=== PATIENT | male | born 1945 | race Caucasian/White ===

== ENCOUNTER 2021-12-26 10:11 | Emergency (ER) | payer OTHER ==
--- OUTSIDE RECORDS SUMMARY | 2021-12-26 10:14 | XMS REPORT | Continuity of Care Document ---
:1945 Author Organization [facility] t Address [address] [place] [address] Care Team Providers Name Role Phone CTR, ADMIN MED Primary Care Physician Unavailable BARBARA Attending Clinician Unavailable SOTA Attending Clinician Unavailable Dom CARDENAS, B Attending Clinician Unavailable OVILLE Attending Clinician Unavailable Doctor Unassigned, Name Attending Clinician Unavailable OVILLE Admitting Clinician Unavailable Payers Payer Name Policy Type Policy Number Effective Date Expiration Date S michaela [employer] [facility] [place] [facility] [id number] 2021 CLASSIC NO PREMIUM 00:00:00 HMO Problems Condition Condition Condition Status Onset Resolution Last Treating Co mments Source Name Details Category Date Date Treatment Clinician Date Acute Acute Disease Active Univers left-sided left-sided 5-15 it y of CHF CHF 00:00: [place] (congestiv (congestiv 00 Me dical e heart e heart Branch failure) failure) Persistent Persistent Disease Active U nivers atrial atrial 4-17 ity of fibrillati fibrill[place] 00 Medical Branch KHLOE (acute KHLOE (acute Disease Active U nivers kidney kidney 4-16 ity of injury) injury) 00:00: [place] 00 Medical Branch Microcytic Microcytic Disease Active U nivers anemia anemia 2-01 ity of 00:00: [place] Medical Branch COPD COPD Disease Active Univers (chronic (chronic 1-29 [place]y of obstructiv obstructiv [place] 00 Medical pulmonary pulmonary Bran ch disease) disease) Constipati Constipati Disease Active U nivers on on 08-25 ity of 00:00: [place] 00 Medical Branch Insomnia Insomnia Disease Active Unive rs 08-25 ity of 00:00: [place] Medical [facility] Penile Penile Disease Active Univers hypospadia hypospadia -25 it y of s s 00:00: [place] 00 Medical Branch HTN HTN Disease Active Univers (hypertens (hypertens -24 it y of ion) ion) 00:00: [place] 00 Medical Branch Superficia Superficia Disease Active U nivers l femoral l femoral -22 ity of artery artery 00:00: [place] occlusion occlusion 00 Medi jen Branch Left Left Disease Active Univers ventricula ventricula - it y of r r 00:00: [place] hypokinesi hypokinesi 00 Me dical s s Branch Acute Acute Disease Active Univers respirator respirator -22 it y of y failure y failure 00:00: [place] s with with 00 Medical hypoxia hypoxia Branch Diastolic Diastolic Disease Active Uni vers dysfunctio dysfunctio - it y of n n 00:00: [place] 00 Medical Branch Chronic Chronic Disease Active Univers atrial atrial 1-19 ity of fibrillati fibrillati 00:[place] with on with 00 Medical RVR RVR Branch Obesity Obesity Disease Active Univers (BMI (BMI 1-19 ity of 30-39.9) 30-39.9) 00:00: [place] 00 Medical Branch PAD PAD Disease Active Univers (periphera (periphera 1-19 it y of l artery l artery 00:00: [place] disease) disease) 00 Medica l Branch Coronary Coronary Disease Active Unive rs artery artery 1-19 ity of disease disease 00:00: [place] involving involving 00 Medi jen comanche comanche Branch coronary coronary artery of artery of comanche comanche heart heart without without angina angina pectoris pectoris Cellulitis Cellulitis Disease Active U nivers of left of left 1-16 ity of anterior anterior 00:00: [place] lower leg lower leg 00 Medi jen Branch Confusion Confusion Disease Active Uni vers 6-17 ity of 00:00: [place] 00 [facility] Branch Acute on Acute on Disease Active Overview: Un jie chronic chronic 02-02 Formattin ity o f combined combined 00:00: g of this [place] as systolic systolic 00 note Medica l and and might be Branch diastolic diastolic different heart heart from the failure failure original. 07/2020 Ejection Fraction = 40-45%.Th ere is mild global hypokines is of the left ventricle . Lower Lower Disease Active Univers urinary urinary 1-03 ity of tract tract 00:00: [place] infectious infectious 00 Me dical disease disease Branch DVT (deep DVT (deep Disease Active Uni vers venous venous - ity of thrombosis [place] left ), left 00 Medical Branch Allergies, Adverse Reactions, Alerts Allergy Allergy Status Severity Reaction(s) Onset Inactive Treating Comm ents Source Name Type Date Date Clinician NO KNOWN Drug Active Univers ALLERGIE Class ity of S [facility] Social History Social Habit Start Date Stop Date Quantity Comments Source Exposure to 2021-12-01 2021-12-11 Not sure [facility] SARS-CoV-2 (event) 00:00:00 15:54:00 [facility] Education 2021-12-11 2021-12-11 21 University of 00:00:00 00:00:00 [facility] Tobacco Comment 2021-11-13 2021-11-13 Not Applicable Unive rsity of 00:00:00 00:00:00 [facility] Sex [birth year] Universit y of 00:00:00 00:00:00 [facility] Smoking Status Start Date Stop Date Source Former smoker 2020-08-24 00:00:00 2020-08-24 00:00:00 [facility] Medications Ordered Filled Start Stop Current Ordering Indication Dosage Frequency Signature Comments Components Source Medication Medication Date Date Medication? Clinician (SIG) Name Name atorvastati Yes 80mg Take 80 mg Univers n (LIPITOR) 5-17 by mouth ity of 80 mg 17:23: at [place] tablet 02 bedtime. Medical Branch budesonide- Yes 2{puff} Inhale 2 Univers formoteroL 5-17 Puffs 2 ity of (SYMBICORT) 17:23: (two) [place] 160-4.5 02 times Medical mcg/actuati daily. Branch on inhaler losartan 50 Yes 50mg Take 50 mg Univers mg tablet 5-17 by mouth ity of 17:23: daily. [place] [address] Medical Branch aspirin Yes 81mg Take 81 mg Univ ers (ASPIR-81) 5-17 by mouth ity o f 81 mg EC 17:23: daily. [place] tablet 02 Medical Branch metFORMIN Yes 500mg Take 500 Uni vers 500 mg 5-17 mg by ity of tablet 17:23: mouth 2 [place] [address] (two) Medical times [place] daily with meals. rivaroxaban Yes 10mg Take 10 mg Univers (XARELTO) 5-17 by mouth ity of 10 mg 17:23: daily. [place] tablet Medical Branch atorvastati Yes 80mg Take 80 mg Univers n (LIPITOR) 5-17 by mouth ity of 80 mg 17:23: at [facility] 02 bedtime. Medical Branch budesonide- Yes 2{puff} Inhale 2 Univers formoteroL 5-17 Puffs 2 ity of (SYMBICORT) 17:23: (two) [place] 160-4.5 02 times Medical mcg/actuati daily. Branch on inhaler losartan 50 Yes 50mg Take 50 mg Univers mg tablet 5-17 by mouth ity of 17:23: daily. [address] aspirin Yes 81mg Take 81 mg Univ ers (ASPIR-81) 5-17 by mouth ity o f 81 mg EC 17:23: daily. [place] tablet Medical Branch metFORMIN Yes 500mg Take 500 Uni vers 500 mg 5-17 mg by ity of tablet 17:23: mouth 2 [place] [address] (two) Medical times [place] daily with meals. carvediloL 2021- Yes [id number] 12.5mg Take 1 Univers 12.5 mg 5-17 - [id number] tablet by ity of tablet 00:00: 04:59 mouth 2 [place] 00 :00 (two) Medical times [place] daily with meals for 30 days. melatonin 3 2021- Yes [id number] 3mg Take 1 Univers mg tablet 5-17 - [id number] tablet by it y of 00:00: 04:59 mouth at [place] 00 :00 bedtime Medical for 30 Branch days. furosemide 2021- Yes [id number] 40mg Take 1 Univers 40 mg 12-13 [id number] tablet by ity of tablet 00:00: 04:59 mouth [place] 00 :00 every Medical morning Branch and evening for 30 days. spironolact 2021- Yes [id number] 25mg Take 1 Univers one 12-13 [id number] tablet by ity of (ALDACTONE) 00:00: 04:59 [place] 25 mg 00 :00 daily for Medical tablet 30 days. Branch ezetimibe Yes [id number] 10mg Take 1 Un jie 10 mg 2-04 tablet by ity of tablet 00:00: mouth [place] 00 daily. Medical Branch ezetimibe Yes [id number] 10mg Take 1 Un jie 10 mg 2-04 tablet by ity of tablet 00:00: mouth [place] 00 daily. Medical Branch vitamin 2019-0 Yes [id number] 1000ug Take 1 Un jie B-12 1,000 6-20 tablet by ity of mcg tablet 00:00: mouth [place] 00 daily. Medical Branch vitamin Yes [id number] 1000ug Take 1 Un jie B-12 1,000 6-20 tablet by ity of mcg tablet 00:00: mouth [place] 00 daily. Medical Branch cyclobenzap Yes 10mg Take 1 Univ ers rine 7-09 tablet by ity of (FLEXERIL) 00:00: mouth at [place] 10 mg 00 bedtime as Medical tablet needed for Branch Muscle Spasms. cyclobenzap Yes 10mg Take 1 Univ ers rine 7-09 tablet by ity of (FLEXERIL) 00:00: mouth at [place] 10 mg 00 bedtime as Medical tablet needed for Branch Muscle Spasms. Immunizations Ordered Filled Immunization Date Status Comments [facility] e Immunization Name Name Influenza Virus 2019-08-04 Completed Universit y of Vaccine 00:00:00 [facility] Influenza Virus 2019-08-04 Completed Universit y of Vaccine 00:00:00 [facility] Pneumococcal 2019-02-03 Completed University o f Polysaccharide, 00:00:00 [facility] PPSV23 (PNEUMOVAX) Branch Pneumococcal 2019-02-03 Completed University o f Polysaccharide, 00:00:00 [facility] ical PPSV23 (PNEUMOVAX) Branch Pneumococcal 13 2016-03-31 Completed Universit y of Conjugate, PCV13 00:00:00 [facility] dical (Prevnar 13) Branch Pneumococcal 13 2016-03-31 Completed Universit y of Conjugate, PCV13 00:00:00 [facility] dical (Prevnar 13) Branch Influenza High Dose 2015-06-29 Completed Unive rsity of 00:00:00 [facility] Influenza High Dose 2015-06-29 Completed Unive rsity of 00:00:00 [facility] Procedures Procedure Date / Time Performing Clinician Source Performed AUTHORIZATION FOR 2021-12-07 05:01:00 Doctor Unassigned, No Univ ersity [facility] RELEASE OF PHI Name Medical Branch Encounters Start End Encounter Admission Attending Care Care Encounter Source Date/Time Date/Time Type Type Clinicians Facility Department ID 2022-01-05 2022-01-05 Outpatient R BARBARA, [facility] [id number] Univers 08:40:00 08:40:00 MELCHOR [id number] ity o f [facility] 2022-01-05 2022-01-05 Outpatient R BARBARA, [facility] [id number] Univers 08:40:00 08:40:00 MELCHOR whitey o f [facility] 2021-12-23 2021-12-23 Outpatient R JESUS, [facility] ACO [id number] Univers 00:00:00 23:59:00 MEHRAN barboza [facility] 2021-12-14 2021-12-14 Transition SABAS Fernandes [id number] Univers 00:00:00 00:00:00 of Care Iza RODRIGUEZ [id number] it y of [id number] [id number] [place] [address] Branch 2021-12-11 2021-12-13 Outpatient X JIGNA [facility] CHARISMA [id number] Univers 08:48:00 17:21:00 BRAULIO barboza [facility] 2021-12-07 2021-12-07 Orders Doctor [place] [id number] Univers 00:00:00 00:00:00 Only Unassigned, TERESA [id number] ity of [place] [facility] [id number] [place] [id number] [place] [address] Branch Results Test Description Test Time Test Comments Results Result Comments Source CULTURE, ANAEROBIC 2021-09-08 SPECIMEN NUMBER: 14:30:49 [id number] CULTURE, ANAEROBIC SPECIMEN NUMBER: [id number] SPECIMEN COMMENT: FOOT SOURCE: FOOT REPORT STATUS: FINAL DIRECT GRAM STAIN: NO WBCs SEEN ABUNDANT GRAM NEGATIVE BACILLI FINAL REPORT: 09/08/2021 NO ANAEROBES RECOVERED AFTER 5 DAYS PRELIMINARY REPORT #2: 09/06/2021 NO ANAEROBES ISOLATED AT 3 DAYS PRELIMINARY REPORT #3: 09/07/2021 POTENTIAL AEROBIC PATHOGEN RECOVERED.NO FURTHER WORKUP UNLESS REQUESTED. NO ANAEROBES ISOLATED AT 4 DAYS PRELIMINARY ANAEROBE REPORT: 09/05/2021 NO ANAEROBES RECOVERED AFTER 48 HOURS UNLESS OTHERWISE INDICATED, ALL TESTING [facility]FOR[facility] [address] [place] [id number] [employer] STENOGRAPHER: TIGIST MOSES M.D. CLIA NUMBER [id number] [facility] [place]. [id number]
[2021-12-26 11:37] LABS: Absolute Lymphocytes (CBC) 1.3 K/uL (0.7-4.9); Hematocrit 41.9 % (39.6-49.0); Lymphocytes % 17.4 % (15.3-44.8); MPV 7.6 fL (7.6-11.3); RBC Red Blood Cell Count 5.02 M/uL (4.33-5.43)
[2021-12-26] MEDS ORDERED: SMZ./TMP. 800/160 MG TABLET ONE (12:06)
[2021-12-26] MEDS ORDERED: CLINDAMYCIN 600MG/D5W 600 MG/50 ML BAG IV ONE (12:06)
--- NOTE | 2021-12-26 13:39 | ER ---
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 patient has a home health nurse for wound healing of a different wound, and the nurse was wanting him to come be evaluated by the ED for possible infection. Patient states he is already on antibiotics, but can't remember which one. Coronavirus screen: At this time, the client does not indicate any symptoms associated with coronavirus-19. Ebola Screen: No symptoms or risks identified at this time. Initial Sepsis Screen: Does the patient meet any 2 criteria? No. Patient's initial sepsis screen is negative. Does the patient have a suspected source of infection? No. Patient's initial sepsis screen is negative. Risk Assessment: Do you want to hurt yourself or someone else? Patient reports no desire to harm self or others. Onset of symptoms was December 19, 2021. 10:19 Method Of Arrival: Ambulatory ap3 10:19 Acuity: NYA 4 ap3 13:06 Complicating Factors: There are no complicating factors for this patient. Triage Assessment: 10:25 General: Appears in no apparent distress. comfortable, Behavior is calm, cooperative. ap3 Pain: Denies pain. Neuro: Level of Consciousness is awake, alert, obeys commands. Cardiovascular: Patient's skin is warm and dry. Respiratory: Airway is patent Respiratory effort is even, unlabored. Injury Description: Laceration sustained to right ayers was sustained one week is bleeding no active bleeding noted. Historical: - Allergies: 10:21 No Known Allergies; ap3 - Home Meds: 10:21 losartan 50 mg oral tab [Active]; rivaroxaban 20 mg oral tab [Active]; furosemide 40 mg ap3 Oral tab [Active]; Symbicort inhalation [Active]; Combivent Inhl [Active]; aspirin 81 mg Oral chew [Active]; metformin 500 mg Oral tab [Active]; ezetimibe 10 mg oral tab [Active]; atorvastatin 80 mg oral tab [Active]; - PMHx: 10:21 Hypertensive disorder; Diabetes mellitus; Chronic obstructive lung disease; ap3 Hypercholesterolemia; - Immunization history:: Client reports having NOT received the Covid vaccine. Last tetanus immunization: < 5 years ago Flu vaccine status is unknown. - Social history:: Smoking status: Patient/guardian denies using tobacco, the patient reports quitting approximately 25 years ago. Screenin:26 Abuse screen: Denies threats or abuse. Nutritional screening: No deficits noted. ap3 Tuberculosis screening: No symptoms or risk factors identified. 11:31 Fall Risk IV access (20 points). Total Rivera Fall Scale indicates No Risk (0-24 pts). jl7 Assessment: 10:45 General: Appears in no apparent distress. uncomfortable, Behavior is calm, cooperative, jl7 appropriate for age. Pain: Denies pain. Neuro: Level of Consciousness is awake, alert, obeys commands, Oriented to person, place, time, situation. Cardiovascular: Patient's skin is warm and dry. Respiratory: Airway is patent Respiratory effort is even, unlabored, Respiratory pattern is regular, symmetrical. Derm: Skin is pink, warm \T\ dry. Musculoskeletal: Range of motion: intact in all extremities. Injury Description: Laceration sustained to lateral aspect of right calf is superficial, 2.6 to 7.5 cm long, is bleeding no active bleeding noted. 11:31 Reassessment: Pt's home health nurse reports he is current;y taking Clindamycin x 4 jl7 days. 13:05 Reassessment: Patient appears in no apparent distress at this time. Patient and/or ph family updated on plan of care and expected duration. Pain level reassessed. Patient is alert, oriented x 3, equal unlabored respirations, skin warm/dry/pink. Vital Signs: 10:19 BP 102 / 50; Pulse 77; Resp 17; Temp 97.9(O); Pulse Ox 100% ; Weight 74.84 kg; Height 5 ap3 ft. 7 in. (170.18 cm); 11:23 BP 135 / 74; Pulse 64; Resp 15; Pulse Ox 100% ; jl7 12:40 BP 127 / 62; Pulse 58; Resp 15; Pulse Ox 100% ; jl7 10:19 Body Mass Index 25.84 (74.84 kg, 170.18 cm) ap3 ED Course: 10:14 Patient arrived in ED. as 10:21 Triage completed. ap3 10:24 Roland Junior PA is PHCP. cp 10:24 Jamey Jurado DO is Attending Physician. cp 10:26 Arm band placed on right wrist. ap3 10:28 Fina Carrion, RONALD is Primary Nurse. ph 11:00 Wound culture swab sent to lab. jl7 11:31 Patient has correct armband on for positive identification. Bed in low position. Call jl7 light in reach. Side rails up X 1. Pulse ox on. NIBP on. 11:31 Initial lab(s) drawn, by ED staff, sent to lab. Inserted saline lock: 22 gauge in right jl7 antecubital area, using aseptic technique. ,using aseptic technique. Inserted by Karen Nurse internet specialist Blood collected. Missed attempt(s): 20 gauge in right forearm. Missed by Karen Nurse internet specialist. Bleeding controlled, band aid applied, catheter tip intact. 12:41 Wound care: to abrasion, located on lateral aspect of right calf was cleaned with jl7 Hibiclens, irrigated with normal saline, dressed with Neosporin, nonstick gauze and tegaderm. 13:05 No provider procedures requiring assistance completed. ph 14:01 XRAY Tib Fib RIGHT In Process Unspecified. EDMS 14:09 IV discontinued, intact, bleeding controlled, No redness/swelling at site. Pressure jl7 dressing applied. Administered Medications: 12:06 Drug: Bactrim (trimethoprim-sulfamethoxazole) (160 mg-800 mg (DS) 1 tablet Route: PO; ph 13:05 Follow up: Response: No adverse reaction ph 12:07 Drug: Clindamycin 600 mg Route: IVPB; Infused Over: 30 mins; Site: right antecubital; ph 12:40 Follow up: Response: No adverse reaction; IV Status: Completed infusion; IV Intake: 50mlph Medication: 13:06 VIS not applicable for this client. ph Intake: 12:40 IV: 50ml; Total: 50ml. ph Outcome: 13:38 Discharge ordered by . cp 14:09 Discharged to home ambulatory. jl7 14:09 Condition: good 14:09 Discharge instructions given to patient, family, Instructed on discharge instructions, follow up and referral plans. medication usage, Demonstrated understanding of instructions, follow-up care, medications, Prescriptions given X 2. 14:10 Patient left the ED. jl7 Addendum: 12/29/2021 09:10 Addendum: Culture Results: Positive wound culture. Phone call Attempt #1 left voice a a5 mail. Signatures: Dispatcher [employer] Paula Craven Audri, RN RN aa5 Fina Carrion RN RN Sandi, Roland, PA PA Michael Perry RN RN jl7 Raquel Villarreal RN RN ap3
--- NOTE | 2021-12-26 13:39 | EDPHYS ---
Physician Documentation [facility] Name: Ty Grant Age: 76 yrs Sex: Male : 1945 Arrival Date: 12/26/2021 Time: 10:14 Bed 8 Private MD: ED Physician Jamey Jurado HPI: 12/26 11:00 This 76 yrs old Male presents to ER via Ambulatory with complaints of Laceration To cp Leg, Wound Check. 11:00 The patient has a laceration occurred at home, occurred after striking right lower leg cp against sharp edge of vp data. The laceration(s) is(are) located on the lateral aspect of right lower leg. Onset: The symptoms/episode began/occurred last week. Associated signs and symptoms: The patient has no apparent associated signs or symptoms. Patient reports he was referred to ED by home health nurse today for evaluation of right lower leg laceration sustained last week at home. Patient has home health nurse who is managing chronic wound to left foot. Patient reports he is currently taking prescribed clindamycin. Historical: - Allergies: 10:21 No Known Allergies; ap3 - Home Meds: 10:21 losartan 50 mg oral tab [Active]; rivaroxaban 20 mg oral tab [Active]; furosemide 40 mg ap3 Oral tab [Active]; Symbicort inhalation [Active]; Combivent Inhl [Active]; aspirin 81 mg Oral chew [Active]; metformin 500 mg Oral tab [Active]; ezetimibe 10 mg oral tab [Active]; atorvastatin 80 mg oral tab [Active]; - PMHx: 10:21 Hypertensive disorder; Diabetes mellitus; Chronic obstructive lung disease; ap3 Hypercholesterolemia; - Immunization history:: Client reports having NOT received the Covid vaccine. Last tetanus immunization: < 5 years ago Flu vaccine status is unknown. - Social history:: Smoking status: Patient/guardian denies using tobacco, the patient reports quitting approximately 25 years ago. ROS: 11:05 Constitutional: Negative for body aches, chills, fever, poor PO intake. cp 11:05 Eyes: Negative for injury, pain, redness, and discharge. cp 11:05 Cardiovascular: Negative for chest pain, palpitations. 11:05 Respiratory: Negative for cough, shortness of breath, wheezing. 11:05 Skin: Positive for laceration(s), of the lateral side right lower leg. 11:05 All other systems are negative. Exam: 11:10 Constitutional: The patient appears in no acute distress, alert, awake, non-toxic, well cp developed, well nourished. 11:10 Head/Face: Normocephalic, atraumatic. cp 11:10 Eyes: Periorbital structures: appear normal, Conjunctiva: normal, no exudate, no injection, Lids and lashes: appear normal, bilaterally. 11:10 Chest/axilla: Inspection: normal. 11:10 Cardiovascular: Rate: normal. 11:10 Respiratory: the patient does not display signs of respiratory distress, Respirations: normal, no use of accessory muscles, no retractions, labored breathing, is not present. 11:10 Abdomen/GI: Exam negative for discomfort, distension, guarding, Inspection: abdomen appears normal. 11:10 Skin: injury, laceration(s), the wound is approximately 6 cm(s), of the lateral side right lower leg, that can be described as clean, no foreign body, irregular, without bleeding, mild swelling, mild erythema noted. 11:10 Neuro: Orientation: to person, place \T\ time. Mentation: is normal, Motor: moves all fours, strength is normal, Gait: is steady, at a normal pace, without difficulty. Vital Signs: 10:19 BP 102 / 50; Pulse 77; Resp 17; Temp 97.9(O); Pulse Ox 100% ; Weight 74.84 kg; Height 5 ap3 ft. 7 in. (170.18 cm); 11:23 BP 135 / 74; Pulse 64; Resp 15; Pulse Ox 100% ; jl7 12:40 BP 127 / 62; Pulse 58; Resp 15; Pulse Ox 100% ; jl7 10:19 Body Mass Index 25.84 (74.84 kg, 170.18 cm) ap3 MDM: 10:33 Patient medically screened. cp 13:35 Data reviewed: vital signs, nurses notes, lab test result(s), radiologic studies, plain cp films. 13:35 Test interpretation: by ED physician or midlevel provider: plain radiologic studies. cp Counseling: I had a detailed discussion with the patient and/or guardian regarding: the historical points, exam findings, and any diagnostic results supporting the discharge/admit diagnosis, lab results, radiology results, the need for outpatient follow up, a family practitioner, to return to the emergency department if symptoms worsen or persist or if there are any questions or concerns that arise at home. 13:38 ED course: VSS. Patient appears non-toxic. Will add oral Bactrim and patient is to cp continue oral clindamycin. Wound cleaned and dressed. Will discharge to home for continued monitoring. 12/26 10:43 Order name: Wound Culture cp 12/26 11:07 Order name: CBC with Diff; Complete Time: 11:46 cp 12/26 11:07 Order name: BMP; Complete Time: 11:55 cp 12/26 11:46 Order name: XRAY Tib Fib RIGHT cp 12/26 10:43 Order name: Wound Care; Complete Time: 10:59 cp 12/26 11:07 Order name: IV; Complete Time: 11:33 cp 12/26 12:28 Order name: Wound dressing; Complete Time: 12:40 cp Administered Medications: 12:06 Drug: Bactrim (trimethoprim-sulfamethoxazole) (160 mg-800 mg (DS) 1 tablet Route: PO; ph 13:05 Follow up: Response: No adverse reaction ph 12:07 Drug: Clindamycin 600 mg Route: IVPB; Infused Over: 30 mins; Site: right antecubital; ph 12:40 Follow up: Response: No adverse reaction; IV Status: Completed infusion; IV Intake: 50mlph Disposition Summary: 12/26/21 13:38 Discharge Ordered Location: Home cp Problem: new cp Symptoms: have improved cp Condition: Stable cp Diagnosis - Leg Laceration/ Open wound of lower leg - right cp Followup: cp - With: Private Physician - When: 48 Hours - Reason: Wound Recheck Discharge Instructions: - Discharge Summary Sheet cp - How to Change Your Wound Dressing cp - Nonsutured Laceration Care cp - Wound Infection cp Forms: - Medication Reconciliation Form cp - Thank You Letter cp - Antibiotic Education cp - Prescription Opioid Use cp Prescriptions: - Bactrim DS 800-160 mg Oral Tablet - take 1 tablet by ORAL route every 12 hours for 10 days; 20 tablet; Refills: 0, cp Product Selection Permitted - mupirocin 2 % Topical ointment - apply 1 application by TOPICAL route 3 times per day for 14 days; 45 gram; cp Refills: 0, Product Selection Permitted Addendum: 12/27/2021 21:55 Co-signature as Attending Physician, Jamey Jurado DO I was immediately available on-site m s3 in the Emergency Department for consultation in the care of the patient. . Signatures: Dispatcher [employer] Fina Sim, RN RN Sandi, Roland, Raquel Lopez cp, RN RN ap3 Jamey Jurado DO DO ms3
--- NOTE | 2021-12-26 14:05 | RAD REPORT ---
EXAM DESCRIPTION: RAD - Tib Fib Right - 12/26/2021 1:59 pm CLINICAL HISTORY: Right leg pain FINDINGS: No fracture is seen. No bony destructive lesion noted
[2021-12-26 14:20] VITALS: TEMP 97.9; O2SAT 100
[2021-12-26 14:23] VITALS: BP 127/62
== END 2021-12-26 14:10 | disposition home or self-care (01) ==
LOC: ER 10:11
DX: S81.811A Laceration without foreign body, right lower leg, initial encounter (principal); W22.8XXA Striking against or struck by other objects, initial encounter; E11.9 Type 2 diabetes mellitus without complications; I10 Essential (primary) hypertension; J44.9 Chronic obstructive pulmonary disease, unspecified; Z79.82 Long term (current) use of aspirin
CPT/HCPCS: 36415; 80048; 85025; 87070; 87077; 87186; 87205; 96365; 99284

== ENCOUNTER → 2023-08-06 | Emergency (ER) | payer OTHER ==
[~2023-08-06] MED LIST: ALBUTEROL 2.5 MG/3 ML NEB SOL ONE; IPRATROPIUM BROM 0.5MG/2.5ML ONE
--- OUTSIDE RECORDS SUMMARY | 2023-08-06 10:28 | XMS REPORT | Continuity of Care Document ---
Author Name Unknown Address [address] [facility] [address] [place] [address] [facility] thconnect Address [address] [facility] [address] [place] [address] Support Name Relationship Address [place] [address] [phone] [place] [address] [phone] CUCO, TESFAYE L Relative [address] [place] [address] Raymundo Norwood [place] Unknown MAMI CALDWELL [address] [place] [address] Unavailable Mami Raymond Child [address] [place] [address] L Kayleen Norwooda Relative [address] [place] [address] Care Team Providers Care Strategy Director Name Role Phone Fortino EFE Jocelin Primary Care Physician [phone] Hermilo YAÑEZ, Roe K.HJanae Attending Clinician + [phone] Avis YAÑEZ, Anne Rodriguez Attending Clinician + Chanell Whiteside MD Attending Clinician [phone] CHANELL WHITESIDE Attending Clinician Unavailable Maritza CARDENAS, Swathi Attending Clinician Unavailable Only, Ang Db Test Attending Clinician Unavaildebby Fernandes RN, Iza [place] Attending Clinician Unavailab ANNE Khanna Attending Clinician Unav ailable Rito Ardon DO Attending Clinician [phone] Samra Lizarraga MD Attending Clinician [phone] Floyd Grant MD Attending Clinician [phone] Joselyn Poe MD Attending Clinician [phone] Hermes YAÑEZ, Daniel Rajan Attending Clinician [phone] Josy CARDENAS, Maria Del Carmen L Attending Clinician Unavail able FLOYD GRANT Attending Clinician Unavailable Aneta Wade DO Attending Clinician [phone] Lorenzo Loo DO Attending Clinician [phone] MELCHOR JIMENEZ Attending Clinician Unavailable MEHRAN LEE Attending Clinician UnavailBRAULIO Man Attending Clinician Unavailable Braulio iDaz MD Attending Clinician [phone] GAIL NAVA Attending Clinician Unavailable Gail Nava NP Attending Clinician [phone] Doctor Unassigned, [place] Attending Clinician [facility] 2, [facility] Attending Clinician Unavailable ROE ETIENNE Attending Clinician Unavaila miguelangel French PAC, K Elizabeth Attending Clinician [phone] ANETA WADE Attending Clinician Unavailab jm Denson RN, Khadijah Attending Clinician [phone] Petar Wood MD Attending Clinician [phone] Scar Sweet MD Attending Clinician [phone] Mehran Burnett MD Attending Clinician [phone] Mehran Barger MD Attending Clinician [phone] PETAR WOOD Attending Clinician Unavailable Britney Cooney RN Attending Clinician [phone] Sahil Aguilar MD Attending Clinician [phone] Domenic Navas MD Attending Clinician [phone] Saundra YAÑEZ, Jose Angel Attending Clinician [phone] Elena YAÑEZ, Anton Attending Clinician [phone] ANTON BYRNES Attending Clinician Unavailable Miesha YAÑEZ, Chanell Admitting Clinician [phone] ANNE RANGEL Admitting Clinician Unav jone Rangel MD, Anne Rodriguez Admitting Clinician + FLOYD GRANT Admitting Clinician Unavailable Kita YAÑEZ, Floyd Admitting Clinician [phone] MEHRAN LEE Admitting Clinician UnavailBRAULIO Man Admitting Clinician Unavailable Braulio Diaz MD Admitting Clinician [phone] ANETA WADE Admitting Clinician Unavailab Lyubov YAÑEZ, Scar Admitting Clinician [phone] Jose Angel Arguello MD Admitting Clinician [phone] JOSE ANGEL ARGUELLO Admitting Clinician Unavailable Payers Payer Name Policy Type Policy Number Effective Date Expirati on Date Source Problems Condition Name Condition Details Condition Category Status Onset Date Resolution Date Last Treatment Date Treating Clinician Comments Source Hx of atrioventr icular node ablation Hx of atrioventr icular node ablation Disease Active 02-24 00:00: 00 Overview: Formattin g of this note might be different from the original. Added automatic ally from request for surgery [id number] [facility] Atrioventr icular block, complete Atrioventr icular block, complete Disease Active 02-24 00:00: 00 Overview: Formattin g of this note might be different from the original. 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 Disease Active 18 00:00: 00 [facility] Syncope, unspecifie d syncope type Syncope, unspecifie d syncope type Disease Active 17 00:00: 00 [facility] Acute left-sided CHF (congestiv e heart failure) Acute left-sided CHF (congestiv e heart failure) Disease Active 15 00:00: 00 [facility] Persistent atrial fibrillati on Persistent atrial fibrillati on Disease Active 4-17 00:00: 00 [facility] KHLOE (acute kidney injury) KHOLE (acute kidney injury) Disease Active 4-16 00:00: 00 [facility] Microcytic anemia Microcytic anemia Disease Active 2-01 00:00: 00 [facility] COPD (chronic obstructiv e pulmonary disease) COPD (chronic obstructiv e pulmonary disease) Disease Active 1-29 00:00: 00 [facility] Constipati on Constipati on Disease Active 1 00:00: 00 [facility] Insomnia Insomnia Disease Active 08-25 00:00: 00 [facility] Penile hypospadia s Penile hypospadia s Disease Active 08-23 00:00: 00 [facility] HTN (hypertens ion) HTN (hypertens ion) Disease Active -24 00:00: 00 [facility] 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 Disease Active 08-20 00:00: 00 [facility] Left ventricula r hypokinesi s Left ventricula r hypokinesi s Disease Active 08-20 00:00: 00 [facility] Acute respirator y failure with hypoxia Acute respirator y failure with hypoxia Disease Active 08-20 00:00: 00 [facility] Diastolic dysfunctio n Diastolic dysfunctio n Disease Active 08-20 00:00: 00 [facility] Chronic atrial fibrillati on with RVR Chronic atrial fibrillati on with RVR Disease Active 08-17 00:00: 00 [facility] Obesity (BMI 30-39.9) Obesity (BMI 30-39.9) Disease Active - 00:00: 00 [facility] PAD (periphera l artery disease) PAD (periphera l artery disease) Disease Active - 00:00: 00 [facility] Coronary artery disease involving [place] coronary artery of [place] heart without angina pectoris Coronary artery disease involving [place] coronary artery of [place] heart without angina pectoris Disease Active 08-17 00:00: 00 [facility] Cellulitis of left anterior lower leg Cellulitis of left anterior lower leg Disease Active 08-14 00:00: 00 [facility] Confusion Confusion Disease Active 01-13 00:00: 00 [facility] Acute on chronic combined systolic and diastolic heart failure Acute on chronic combined systolic and diastolic heart failure Disease Active 02-02 00:00: 00 Overview: Formattin g of this note might be different from the original. 07/2020 Ejection Fraction = 40-45%.Th ere is mild global hypokines is of the left ventricle . [facility] Lower urinary tract infectious disease Lower urinary tract infectious disease Disease Active 08-01 00:00: 00 [facility] DVT (deep venous thrombosis ), left DVT (deep venous thrombosis ), left Disease Active 07-31 00:00: 00 [facility] Allergies, Adverse Reactions, Alerts Allergy Name Allergy Type Status Severity Reaction(s) Onset Date Inactive Date Treating Clinician Comments Source NO KNOWN ALLERGIE S Drug Class Active [facility] Social History Social Habit Start Date Stop Date Quantity Comments Source History of tobacco use Current smoker [facility] Exposure to SARS-CoV-2 (event) 2022-02-27 00:00:00 2022-03-09 08:01:00 Not sure [facility] Alcohol intake 2022-02-12 00:00:00 2022-02-12 00:00:00 Ex-drinker (finding) [facility] Education 2021-12-11 00:00:00 2021-12-11 00:00:00 21 [facility] Tobacco use and exposure 2021-11-13 00:00:00 2021-11-13 00:00:00 Smokeless tobacco non-user [facility] Tobacco Comment 2021-11-13 00:00:00 2021-11-13 00:00:00 Not Applicable [facility] Sex Assigned At 1945 00:00:00 1945 00:00:00 [facility] Smoking Status Start Date Stop Date Source Ex-smoker 2021-11-13 00:00:00 2021-11-13 00:00:[address] [facility] Medications Ordered Medication Name Filled Medication Name Start Date Stop Date Current Medication? Ordering Clinician Indication Dosage Frequency Signature (SIG) Comments Components Source atorvastati n (LIPITOR) 80 mg tablet 03-09 11:25: 55 Yes 80mg Take 80 mg by mouth at bedtime. [facility] budesonide- formoteroL (SYMBICORT) 160-4.5 mcg/actuati on inhaler 03-09 11:25: 55 Yes 2{puff} Inhale 2 Puffs 2 (two) times daily. [facility] metFORMIN 500 mg tablet 03-09 11:25: 55 Yes 500mg Take 500 mg by mouth daily. [facility] traZODone 50 mg tablet 03-09 11:25: 55 Yes 50mg Take 50 mg by mouth at bedtime. [facility] albuterol-i pratropium (COMBIVENT RESPIMAT) 20-100 mcg/actuati on inhaler 03-09 11:25: 55 Yes 1{puff} Inhale 1 Puff 4 (four) times daily as needed for Wheezing or Shortness of Breath. [facility] Cholecalcif karan, Vitamin D3, (VITAMIN D3) 125 mcg (5,000 unit) tablet 03-09 11:25: 55 Yes 5000U Take 5,000 Units by mouth daily. [facility] fluticasone 27.5 mcg/actuati on nasal spray 03-09 11:25: 55 Yes 2{spray } Use 2 Sprays in each nostril daily. [facility] atorvastati n (LIPITOR) 80 mg tablet 03-09 11:25: 55 Yes 80mg Take 80 mg by mouth at bedtime. [facility] budesonide- formoteroL (SYMBICORT) 160-4.5 mcg/actuati on inhaler 03-09 11:25: 55 Yes 2{puff} Inhale 2 Puffs 2 (two) times daily. [facility] metFORMIN 500 mg tablet 03-09 11:25: 55 Yes 500mg Take 500 mg by mouth daily. [facility] traZODone 50 mg tablet 03-09 11:25: 55 Yes 50mg Take 50 mg by mouth at bedtime. [facility] albuterol-i pratropium (COMBIVENT RESPIMAT) 20-100 mcg/actuati on inhaler 03-09 11:25: 55 Yes 1{puff} Inhale 1 Puff 4 (four) times daily as needed for Wheezing or Shortness of Breath. [facility] Cholecalcif karan, Vitamin D3, (VITAMIN D3) 125 mcg (5,000 unit) tablet 03-09 11:25: 55 Yes 5000U Take 5,000 Units by mouth daily. [facility] fluticasone 27.5 mcg/actuati on nasal spray 03-09 11:25: 55 Yes 2{spray } Use 2 Sprays in each nostril daily. [facility] atorvastati n (LIPITOR) 80 mg tablet 03-09 11:25: 55 Yes 80mg Take 80 mg by mouth at bedtime. [facility] budesonide- formoteroL (SYMBICORT) 160-4.5 mcg/actuati on inhaler 03-09 11:25: 55 Yes 2{puff} Inhale 2 Puffs 2 (two) times daily. [facility] metFORMIN 500 mg tablet 03-09 11:25: 55 Yes 500mg Take 500 mg by mouth daily. [facility] traZODone 50 mg tablet 03-09 11:25: 55 Yes 50mg Take 50 mg by mouth at bedtime. [facility] albuterol-i pratropium (COMBIVENT RESPIMAT) 20-100 mcg/actuati on inhaler 03-09 11:25: 55 Yes 1{puff} Inhale 1 Puff 4 (four) times daily as needed for Wheezing or Shortness of Breath. [facility] Cholecalcif karan, Vitamin D3, (VITAMIN D3) 125 mcg (5,000 unit) tablet 03-09 11:25: 55 Yes 5000U Take 5,000 Units by mouth daily. [facility] fluticasone 27.5 mcg/actuati on nasal spray 03-09 11:25: 55 Yes 2{spray } Use 2 Sprays in each nostril daily. [facility] atorvastati n (LIPITOR) 80 mg tablet 03-09 11:25: 55 Yes 80mg Take 80 mg by mouth at bedtime. [facility] budesonide- formoteroL (SYMBICORT) 160-4.5 mcg/actuati on inhaler 03-09 11:25: 55 Yes 2{puff} Inhale 2 Puffs 2 (two) times daily. [facility] metFORMIN 500 mg tablet 03-09 11:25: 55 Yes 500mg Take 500 mg by mouth daily. [facility] traZODone 50 mg tablet 03-09 11:25: 55 Yes 50mg Take 50 mg by mouth at bedtime. [facility] albuterol-i pratropium (COMBIVENT RESPIMAT) 20-100 mcg/actuati on inhaler 03-09 11:25: 55 Yes 1{puff} Inhale 1 Puff 4 (four) times daily as needed for Wheezing or Shortness of Breath. [facility] Cholecalcif karan, Vitamin D3, (VITAMIN D3) 125 mcg (5,000 unit) tablet 03-09 11:25: 55 Yes 5000U Take 5,000 Units by mouth daily. [facility] fluticasone 27.5 mcg/actuati on nasal spray 03-09 11:25: 55 Yes 2{spray } Use 2 Sprays in each nostril daily. [facility] atorvastati n (LIPITOR) 80 mg tablet 03-09 11:25: 55 Yes 80mg Take 80 mg by mouth at bedtime. [facility] budesonide- formoteroL (SYMBICORT) 160-4.5 mcg/actuati on inhaler 03-09 11:25: 55 Yes 2{puff} Inhale 2 Puffs 2 (two) times daily. [facility] metFORMIN 500 mg tablet 03-09 11:25: 55 Yes 500mg Take 500 mg by mouth daily. [facility] traZODone 50 mg tablet 03-09 11:25: 55 Yes 50mg Take 50 mg by mouth at bedtime. [facility] albuterol-i pratropium (COMBIVENT RESPIMAT) 20-100 mcg/actuati on inhaler 03-09 11:25: 55 Yes 1{puff} Inhale 1 Puff 4 (four) times daily as needed for Wheezing or Shortness of Breath. [facility] Cholecalcif karan, Vitamin D3, (VITAMIN D3) 125 mcg (5,000 unit) tablet 03-09 11:25: 55 Yes 5000U Take 5,000 Units by mouth daily. [facility] fluticasone 27.5 mcg/actuati on nasal spray 03-09 11:25: 55 Yes 2{spray } Use 2 Sprays in each nostril daily. [facility] atorvastati n (LIPITOR) 80 mg tablet 03-09 11:25: 55 Yes 80mg Take 80 mg by mouth at bedtime. [facility] budesonide- formoteroL (SYMBICORT) 160-4.5 mcg/actuati on inhaler 03-09 11:25: 55 Yes 2{puff} Inhale 2 Puffs 2 (two) times daily. [facility] metFORMIN 500 mg tablet 03-09 11:25: 55 Yes 500mg Take 500 mg by mouth daily. [facility] traZODone 50 mg tablet 03-09 11:25: 55 Yes 50mg Take 50 mg by mouth at bedtime. [facility] albuterol-i pratropium (COMBIVENT RESPIMAT) 20-100 mcg/actuati on inhaler 03-09 11:25: 55 Yes 1{puff} Inhale 1 Puff 4 (four) times daily as needed for Wheezing or Shortness of Breath. [facility] Cholecalcif karan, Vitamin D3, (VITAMIN D3) 125 mcg (5,000 unit) tablet 03-09 11:25: 55 Yes 5000U Take 5,000 Units by mouth daily. [facility] fluticasone 27.5 mcg/actuati on nasal spray 03-09 11:25: 55 Yes 2{spray } Use 2 Sprays in each nostril daily. [facility] atorvastati n (LIPITOR) 80 mg tablet 03-09 11:25: 55 Yes 80mg Take 80 mg by mouth at bedtime. [facility] budesonide- formoteroL (SYMBICORT) 160-4.5 mcg/actuati on inhaler 03-09 11:25: 55 Yes 2{puff} Inhale 2 Puffs 2 (two) times daily. [facility] metFORMIN 500 mg tablet 03-09 11:25: 55 Yes 500mg Take 500 mg by mouth daily. [facility] traZODone 50 mg tablet 03-09 11:25: 55 Yes 50mg Take 50 mg by mouth at bedtime. [facility] albuterol-i pratropium (COMBIVENT RESPIMAT) 20-100 mcg/actuati on inhaler 03-09 11:25: 55 Yes 1{puff} Inhale 1 Puff 4 (four) times daily as needed for Wheezing or Shortness of Breath. [facility] Cholecalcif karan, Vitamin D3, (VITAMIN D3) 125 mcg (5,000 unit) tablet 03-09 11:25: 55 Yes 5000U Take 5,000 Units by mouth daily. [facility] fluticasone 27.5 mcg/actuati on nasal spray 8-11 11:25: 55 Yes 2{spray } Use 2 Sprays in each nostril daily. [facility] amiodarone 200 mg tablet 0 8-08 00:00: 00 05-06 04:59 :00 No [id number] 200mg Take 1 tablet by mouth in the morning for 60 days. [facility] amiodarone 200 mg tablet 0 8-08 00:00: 00 05-06 04:59 :00 No [id number] 200mg Take 1 tablet by mouth in the morning for 60 days. [facility] amiodarone 200 mg tablet 8 00:00: 00 05-06 04:59 :00 No [id number] 200mg Take 1 tablet by mouth in the morning for 60 days. [facility] amiodarone 200 mg tablet 8-08 00:00: 00 05-06 04:59 :00 No [id number] 200mg Take 1 tablet by mouth in the morning for 60 days. [facility] amiodarone 200 mg tablet 0 808 00:00: 00 05-06 04:59 :00 No [id number] 200mg Take 1 tablet by mouth in the morning for 60 days. [facility] amiodarone 200 mg tablet 808 00:00: 00 05-06 04:59 :00 No [id number] 200mg Take 1 tablet by mouth in the morning for 60 days. [facility] amiodarone 200 mg tablet 2021-0 8-08 00:00: 00 05-06 04:59 :00 No [id number] 200mg Take 1 tablet by mouth in the morning for 60 days. [facility] amiodarone 200 mg tablet 0 8-08 00:00: 00 05-06 04:59 :00 No [id number] 200mg Take 1 tablet by mouth in the morning for 60 days. [facility] amiodarone 400 mg tablet 0 7-25 00:00: 00 03-07 04:59 :00 No [id number] 400mg Take 1 tablet by mouth in the morning and 1 tablet in the evening. Do all this for 28 doses. [facility] amiodarone 400 mg tablet 02-20 00:00: 00 03-07 04:59 :00 No [id number] 400mg Take 1 tablet by mouth in the morning and 1 tablet in the evening. Do all this for 28 doses. [facility] amiodarone 400 mg tablet 02-20 00:00: 00 03-07 04:59 :00 No [id number] 400mg Take 1 tablet by mouth in the morning and 1 tablet in the evening. Do all this for 28 doses. [facility] amiodarone 400 mg tablet 02-20 00:00: 00 03-07 04:59 :00 No [id number] 400mg Take 1 tablet by mouth in the morning and 1 tablet in the evening. Do all this for 28 doses. [facility] amiodarone 400 mg tablet 02-20 00:00: 00 03-07 04:59 :00 No [id number] 400mg Take 1 tablet by mouth in the morning and 1 tablet in the evening. Do all this for 28 doses. [facility] amiodarone 400 mg tablet 02-20 00:00: 00 03-07 04:59 :00 No [id number] 400mg Take 1 tablet by mouth in the morning and 1 tablet in the evening. Do all this for 28 doses. [facility] rivaroxaban 20 mg tablet 02-19 00:00: 00 05-21 04:59 :00 No [id number] 20mg Take 1 tablet by mouth in the morning for 90 days. Indication s: atrial fibrillati on [facility] losartan 25 mg tablet 02-19 00:00: 00 05-21 04:59 :00 No [id number] 25mg Take 1 tablet by mouth in the morning for 90 days. [facility] metoprolol succinate XL 50 mg 24 hr tablet 24 00:00: 00 05-21 04:59 :00 No [id number] 50mg Take 1 tablet by mouth in the morning for 90 days. [facility] spironolact one 25 mg tablet 02-19 00:00: 00 05-21 04:59 :00 No [id number] 25mg Take 1 tablet by mouth in the morning for 90 days. [facility] rivaroxaban 20 mg tablet 02-19 00:00: 00 05-21 04:59 :00 No [id number] 20mg Take 1 tablet by mouth in the morning for 90 days. Indication s: atrial fibrillati on [facility] losartan 25 mg tablet 02-19 00:00: 00 05-21 04:59 :00 No [id number] 25mg Take 1 tablet by mouth in the morning for 90 days. [facility] metoprolol succinate XL 50 mg 24 hr tablet 02-19 00:00: 00 05-21 04:59 :00 No [id number] 50mg Take 1 tablet by mouth in the morning for 90 days. [facility] spironolact one 25 mg tablet 02-19 00:00: 00 05-21 04:59 :00 No [id number] 25mg Take 1 tablet by mouth in the morning for 90 days. [facility] rivaroxaban 20 mg tablet 02-19 00:00: 00 05-21 04:59 :00 No [id number] 20mg Take 1 tablet by mouth in the morning for 90 days. Indication s: atrial fibrillati on [facility] losartan 25 mg tablet 02-19 00:00: 00 05-21 04:59 :00 No [id number] 25mg Take 1 tablet by mouth in the morning for 90 days. [facility] metoprolol succinate XL 50 mg 24 hr tablet 02-19 00:00: 00 05-21 04:59 :00 No [id number] 50mg Take 1 tablet by mouth in the morning for 90 days. [facility] spironolact one 25 mg tablet 0 724 00:00: 00 05-21 04:59 :00 No [id number] 25mg Take 1 tablet by mouth in the morning for 90 days. [facility] rivaroxaban 20 mg tablet 24 00:00: 00 05-21 04:59 :00 No [id number] 20mg Take 1 tablet by mouth in the morning for 90 days. Indication s: atrial fibrillati on [facility] losartan 25 mg tablet 02-19 00:00: 00 05-21 04:59 :00 No [id number] 25mg Take 1 tablet by mouth in the morning for 90 days. [facility] metoprolol succinate XL 50 mg 24 hr tablet 02-19 00:00: 00 05-21 04:59 :00 No [id number] 50mg Take 1 tablet by mouth in the morning for 90 days. [facility] spironolact one 25 mg tablet 02-19 00:00: 00 05-21 04:59 :00 No [id number] 25mg Take 1 tablet by mouth in the morning for 90 days. [facility] rivaroxaban 20 mg tablet 02-19 00:00: 00 05-21 04:59 :00 No [id number] 20mg Take 1 tablet by mouth in the morning for 90 days. Indication s: atrial fibrillati on [facility] losartan 25 mg tablet 24 00:00: 00 05-21 04:59 :00 No [id number] 25mg Take 1 tablet by mouth in the morning for 90 days. [facility] metoprolol succinate XL 50 mg 24 hr tablet 24 00:00: 00 05-21 04:59 :00 No [id number] 50mg Take 1 tablet by mouth in the morning for 90 days. [facility] spironolact one 25 mg tablet 0 24 00:00: 00 05-21 04:59 :00 No [id number] 25mg Take 1 tablet by mouth in the morning for 90 days. [facility] rivaroxaban 20 mg tablet 24 00:00: 00 05-21 04:59 :00 No [id number] 20mg Take 1 tablet by mouth in the morning for 90 days. Indication s: atrial fibrillati on [facility] losartan 25 mg tablet 02-19 00:00: 00 05-21 04:59 :00 No [id number] 25mg Take 1 tablet by mouth in the morning for 90 days. [facility] metoprolol succinate XL 50 mg 24 hr tablet 02-19 00:00: 00 05-21 04:59 :00 No [id number] 50mg Take 1 tablet by mouth in the morning for 90 days. [facility] spironolact one 25 mg tablet 02-19 00:00: 00 05-21 04:59 :00 No [id number] 25mg Take 1 tablet by mouth in the morning for 90 days. [facility] rivaroxaban 20 mg tablet 02-19 00:00: 00 05-21 04:59 :00 No [id number] 20mg Take 1 tablet by mouth in the morning for 90 days. Indication s: atrial fibrillati on [facility] losartan 25 mg tablet 02-19 00:00: 00 05-21 04:59 :00 No [id number] 25mg Take 1 tablet by mouth in the morning for 90 days. [facility] metoprolol succinate XL 50 mg 24 hr tablet 24 00:00: 00 05-21 04:59 :00 No [id number] 50mg Take 1 tablet by mouth in the morning for 90 days. [facility] spironolact one 25 mg tablet 24 00:00: 00 05-21 04:59 :00 No [id number] 25mg Take 1 tablet by mouth in the morning for 90 days. [facility] rivaroxaban 20 mg tablet 24 00:00: 00 05-21 04:59 :00 No [id number] 20mg Take 1 tablet by mouth in the morning for 90 days. Indication s: atrial fibrillati on [facility] losartan 25 mg tablet 724 00:00: 00 05-21 04:59 :00 No [id number] 25mg Take 1 tablet by mouth in the morning for 90 days. [facility] metoprolol succinate XL 50 mg 24 hr tablet 24 00:00: 00 05-21 04:59 :00 No [id number] 50mg Take 1 tablet by mouth in the morning for 90 days. [facility] spironolact one 25 mg tablet 02-19 00:00: 00 05-21 04:59 :00 No [id number] 25mg Take 1 tablet by mouth in the morning for 90 days. [facility] rivaroxaban 20 mg tablet 02-19 00:00: 00 05-21 04:59 :00 No [id number] 20mg Take 1 tablet by mouth in the morning for 90 days. Indication s: atrial fibrillati on [facility] losartan 25 mg tablet 02-19 00:00: 00 05-21 04:59 :00 No [id number] 25mg Take 1 tablet by mouth in the morning for 90 days. [facility] metoprolol succinate XL 50 mg 24 hr tablet 02-19 00:00: 00 05-21 04:59 :00 No [id number] 50mg Take 1 tablet by mouth in the morning for 90 days. [facility] spironolact one 25 mg tablet 24 00:00: 00 05-21 04:59 :00 No [id number] 25mg Take 1 tablet by mouth in the morning for 90 days. [facility] rivaroxaban 20 mg tablet 0 724 00:00: 00 05-21 04:59 :00 No [id number] 20mg Take 1 tablet by mouth in the morning for 90 days. Indication s: atrial fibrillati on [facility] losartan 25 mg tablet 02-19 00:00: 00 05-21 04:59 :00 No [id number] 25mg Take 1 tablet by mouth in the morning for 90 days. [facility] metoprolol succinate XL 50 mg 24 hr tablet 02-19 00:00: 00 05-21 04:59 :00 No [id number] 50mg Take 1 tablet by mouth in the morning for 90 days. [facility] spironolact one 25 mg tablet 02-19 00:00: 00 05-21 04:59 :00 No [id number] 25mg Take 1 tablet by mouth in the morning for 90 days. [facility] rivaroxaban 20 mg tablet 02-19 00:00: 00 05-21 04:59 :00 No [id number] 20mg Take 1 tablet by mouth in the morning for 90 days. Indication s: atrial fibrillati on [facility] losartan 25 mg tablet 02-19 00:00: 00 05-21 04:59 :00 No [id number] 25mg Take 1 tablet by mouth in the morning for 90 days. [facility] metoprolol succinate XL 50 mg 24 hr tablet 02-19 00:00: 00 05-21 04:59 :00 No [id number] 50mg Take 1 tablet by mouth in the morning for 90 days. [facility] spironolact one 25 mg tablet 02-19 00:00: 00 05-21 04:59 :00 No [id number] 25mg Take 1 tablet by mouth in the morning for 90 days. [facility] rivaroxaban 20 mg tablet 02-19 00:00: 00 05-21 04:59 :00 No [id number] 20mg Take 1 tablet by mouth in the morning for 90 days. Indication s: atrial fibrillati on [facility] losartan 25 mg tablet 02-19 00:00: 00 05-21 04:59 :00 No [id number] 25mg Take 1 tablet by mouth in the morning for 90 days. [facility] metoprolol succinate XL 50 mg 24 hr tablet 24 00:00: 00 05-21 04:59 :00 No [id number] 50mg Take 1 tablet by mouth in the morning for 90 days. [facility] spironolact one 25 mg tablet 24 00:00: 00 05-21 04:59 :00 No [id number] 25mg Take 1 tablet by mouth in the morning for 90 days. [facility] rivaroxaban 20 mg tablet 02-19 00:00: 00 05-21 04:59 :00 No [id number] 20mg Take 1 tablet by mouth in the morning for 90 days. Indication s: atrial fibrillati on [facility] losartan 25 mg tablet 02-19 00:00: 00 05-21 04:59 :00 No [id number] 25mg Take 1 tablet by mouth in the morning for 90 days. [facility] metoprolol succinate XL 50 mg 24 hr tablet 02-19 00:00: 00 05-21 04:59 :00 No [id number] 50mg Take 1 tablet by mouth in the morning for 90 days. [facility] spironolact one 25 mg tablet 02-19 00:00: 00 05-21 04:59 :00 No [id number] 25mg Take 1 tablet by mouth in the morning for 90 days. [facility] rivaroxaban 20 mg tablet 24 00:00: 00 05-21 04:59 :00 No [id number] 20mg Take 1 tablet by mouth in the morning for 90 days. Indication s: atrial fibrillati on [facility] losartan 25 mg tablet 24 00:00: 00 05-21 04:59 :00 No [id number] 25mg Take 1 tablet by mouth in the morning for 90 days. [facility] metoprolol succinate XL 50 mg 24 hr tablet 24 00:00: 00 05-21 04:59 :00 No [id number] 50mg Take 1 tablet by mouth in the morning for 90 days. [facility] spironolact one 25 mg tablet 02-19 00:00: 00 05-21 04:59 :00 No [id number] 25mg Take 1 tablet by mouth in the morning for 90 days. [facility] atorvastati n (LIPITOR) 80 mg tablet 02-18 17:35: 01 Yes 80mg Take 80 mg by mouth at bedtime. [facility] budesonide- formoteroL (SYMBICORT) 160-4.5 mcg/actuati on inhaler 02-18 17:35: 01 Yes 2{puff} Inhale 2 Puffs 2 (two) times daily. [facility] metFORMIN 500 mg tablet 02-18 17:35: 01 Yes 500mg Take 500 mg by mouth daily. [facility] traZODone 50 mg tablet 02-18 17:35: 01 Yes 50mg Take 50 mg by mouth at bedtime. [facility] albuterol-i pratropium (COMBIVENT RESPIMAT) 20-100 mcg/actuati on inhaler 02-18 17:35: 01 Yes 1{puff} Inhale 1 Puff 4 (four) times daily as needed for Wheezing or Shortness of Breath. [facility] Cholecalcif karan, Vitamin D3, (VITAMIN D3) 125 mcg (5,000 unit) tablet 02-18 17:35: 01 Yes 5000U Take 5,000 Units by mouth daily. [facility] fluticasone 27.5 mcg/actuati on nasal spray 02-18 17:35: 01 Yes 2{spray } Use 2 Sprays in each nostril daily. [facility] atorvastati n (LIPITOR) 80 mg tablet 02-18 17:35: 01 Yes 80mg Take 80 mg by mouth at bedtime. [facility] budesonide- formoteroL (SYMBICORT) 160-4.5 mcg/actuati on inhaler 02-18 17:35: 01 Yes 2{puff} Inhale 2 Puffs 2 (two) times daily. [facility] metFORMIN 500 mg tablet 02-18 17:35: 01 Yes 500mg Take 500 mg by mouth daily. [facility] traZODone 50 mg tablet 02-18 17:35: 01 Yes 50mg Take 50 mg by mouth at bedtime. [facility] albuterol-i pratropium (COMBIVENT RESPIMAT) 20-100 mcg/actuati on inhaler 02-18 17:35: 01 Yes 1{puff} Inhale 1 Puff 4 (four) times daily as needed for Wheezing or Shortness of Breath. [facility] Cholecalcif karan, Vitamin D3, (VITAMIN D3) 125 mcg (5,000 unit) tablet 02-18 17:35: 01 Yes 5000U Take 5,000 Units by mouth daily. [facility] fluticasone 27.5 mcg/actuati on nasal spray 02-18 17:35: 01 Yes 2{spray } Use 2 Sprays in each nostril daily. [facility] atorvastati n (LIPITOR) 80 mg tablet 02-18 17:35: 01 Yes 80mg Take 80 mg by mouth at bedtime. [facility] budesonide- formoteroL (SYMBICORT) 160-4.5 mcg/actuati on inhaler 02-18 17:35: 01 Yes 2{puff} Inhale 2 Puffs 2 (two) times daily. [facility] metFORMIN 500 mg tablet 02-18 17:35: 01 Yes 500mg Take 500 mg by mouth daily. [facility] traZODone 50 mg tablet 02-18 17:35: 01 Yes 50mg Take 50 mg by mouth at bedtime. [facility] albuterol-i pratropium (COMBIVENT RESPIMAT) 20-100 mcg/actuati on inhaler 02-18 17:35: 01 Yes 1{puff} Inhale 1 Puff 4 (four) times daily as needed for Wheezing or Shortness of Breath. [facility] Cholecalcif karan, Vitamin D3, (VITAMIN D3) 125 mcg (5,000 unit) tablet 02-18 17:35: 01 Yes 5000U Take 5,000 Units by mouth daily. [facility] fluticasone 27.5 mcg/actuati on nasal spray 02-18 17:35: 01 Yes 2{spray } Use 2 Sprays in each nostril daily. [facility] atorvastati n (LIPITOR) 80 mg tablet 02-18 17:35: 01 Yes 80mg Take 80 mg by mouth at bedtime. [facility] budesonide- formoteroL (SYMBICORT) 160-4.5 mcg/actuati on inhaler 02-18 17:35: 01 Yes 2{puff} Inhale 2 Puffs 2 (two) times daily. [facility] metFORMIN 500 mg tablet 02-18 17:35: 01 Yes 500mg Take 500 mg by mouth daily. [facility] traZODone 50 mg tablet 02-18 17:35: 01 Yes 50mg Take 50 mg by mouth at bedtime. [facility] albuterol-i pratropium (COMBIVENT RESPIMAT) 20-100 mcg/actuati on inhaler 02-18 17:35: 01 Yes 1{puff} Inhale 1 Puff 4 (four) times daily as needed for Wheezing or Shortness of Breath. [facility] Cholecalcif karan, Vitamin D3, (VITAMIN D3) 125 mcg (5,000 unit) tablet 02-18 17:35: 01 Yes 5000U Take 5,000 Units by mouth daily. [facility] fluticasone 27.5 mcg/actuati on nasal spray 02-18 17:35: 01 Yes 2{spray } Use 2 Sprays in each nostril daily. [facility] atorvastati n (LIPITOR) 80 mg tablet 02-18 17:35: 01 Yes 80mg Take 80 mg by mouth at bedtime. [facility] budesonide- formoteroL (SYMBICORT) 160-4.5 mcg/actuati on inhaler 02-18 17:35: 01 Yes 2{puff} Inhale 2 Puffs 2 (two) times daily. [facility] metFORMIN 500 mg tablet 02-18 17:35: 01 Yes 500mg Take 500 mg by mouth daily. [facility] traZODone 50 mg tablet 02-18 17:35: 01 Yes 50mg Take 50 mg by mouth at bedtime. [facility] albuterol-i pratropium (COMBIVENT RESPIMAT) 20-100 mcg/actuati on inhaler 02-18 17:35: 01 Yes 1{puff} Inhale 1 Puff 4 (four) times daily as needed for Wheezing or Shortness of Breath. [facility] Cholecalcif karan, Vitamin D3, (VITAMIN D3) 125 mcg (5,000 unit) tablet 02-18 17:35: 01 Yes 5000U Take 5,000 Units by mouth daily. [facility] fluticasone 27.5 mcg/actuati on nasal spray 02-18 17:35: 01 Yes 2{spray } Use 2 Sprays in each nostril daily. [facility] atorvastati n (LIPITOR) 80 mg tablet 02-18 17:35: 01 Yes 80mg Take 80 mg by mouth at bedtime. [facility] budesonide- formoteroL (SYMBICORT) 160-4.5 mcg/actuati on inhaler 02-18 17:35: 01 Yes 2{puff} Inhale 2 Puffs 2 (two) times daily. [facility] metFORMIN 500 mg tablet 02-18 17:35: 01 Yes 500mg Take 500 mg by mouth daily. [facility] traZODone 50 mg tablet 02-18 17:35: 01 Yes 50mg Take 50 mg by mouth at bedtime. [facility] albuterol-i pratropium (COMBIVENT RESPIMAT) 20-100 mcg/actuati on inhaler 02-18 17:35: 01 Yes 1{puff} Inhale 1 Puff 4 (four) times daily as needed for Wheezing or Shortness of Breath. [facility] Cholecalcif karan, Vitamin D3, (VITAMIN D3) 125 mcg (5,000 unit) tablet 02-18 17:35: 01 Yes 5000U Take 5,000 Units by mouth daily. [facility] fluticasone 27.5 mcg/actuati on nasal spray 02-18 17:35: 01 Yes 2{spray } Use 2 Sprays in each nostril daily. [facility] atorvastati n (LIPITOR) 80 mg tablet 02-18 17:35: 01 Yes 80mg Take 80 mg by mouth at bedtime. [facility] budesonide- formoteroL (SYMBICORT) 160-4.5 mcg/actuati on inhaler 02-18 17:35: 01 Yes 2{puff} Inhale 2 Puffs 2 (two) times daily. [facility] metFORMIN 500 mg tablet 02-18 17:35: 01 Yes 500mg Take 500 mg by mouth daily. [facility] traZODone 50 mg tablet 02-18 17:35: 01 Yes 50mg Take 50 mg by mouth at bedtime. [facility] albuterol-i pratropium (COMBIVENT RESPIMAT) 20-100 mcg/actuati on inhaler 02-18 17:35: 01 Yes 1{puff} Inhale 1 Puff 4 (four) times daily as needed for Wheezing or Shortness of Breath. [facility] Cholecalcif karan, Vitamin D3, (VITAMIN D3) 125 mcg (5,000 unit) tablet 02-18 17:35: 01 Yes 5000U Take 5,000 Units by mouth daily. [facility] fluticasone 27.5 mcg/actuati on nasal spray 02-18 17:35: 01 Yes 2{spray } Use 2 Sprays in each nostril daily. [facility] ity [facility] acetaminoph en 325 mg tablet 02-18 00:00: 00 Yes 650mg Take 2 tablets by mouth every 6 (six) hours as needed for Pain (scale 1-3). [facility] 325 mg tablet 0 02-18 00:00: 00 Yes 650mg Take 2 tablets by mouth every 6 (six) hours as needed for Pain (scale 1-3). [facility] acetaminoph en 325 mg tablet 0 02-18 00:00: 00 Yes 650mg Take 2 tablets by mouth every 6 (six) hours as needed for Pain (scale 1-3). [facility] acetaminoph en 325 mg tablet 0 02-18 00:00: 00 Yes 650mg Take 2 tablets by mouth every 6 (six) hours as needed for Pain (scale 1-3). [facility] acetaminoph en 325 mg tablet 0 02-18 00:00: 00 Yes 650mg Take 2 tablets by mouth every 6 (six) hours as needed for Pain (scale 1-3). [facility] acetaminoph en 325 mg tablet 02-18 00:00: 00 Yes 650mg Take 2 tablets by mouth every 6 (six) hours as needed for Pain (scale 1-3). [facility] acetaminoph en 325 mg tablet 0 02-18 00:00: 00 Yes 650mg Take 2 tablets by mouth every 6 (six) hours as needed for Pain (scale 1-3). [facility] acetaminoph en 325 mg tablet 0 02-18 00:00: 00 Yes 650mg Take 2 tablets by mouth every 6 (six) hours as needed for Pain (scale 1-3). [facility] acetaminoph en 325 mg tablet 0 02-18 00:00: 00 Yes 650mg Take 2 tablets by mouth every 6 (six) hours as needed for Pain (scale 1-3). [facility] acetaminoph en 325 mg tablet 02-18 00:00: 00 Yes 650mg Take 2 tablets by mouth every 6 (six) hours as needed for Pain (scale 1-3). [facility] acetaminoph en 325 mg tablet 02-18 00:00: 00 Yes 650mg Take 2 tablets by mouth every 6 (six) hours as needed for Pain (scale 1-3). [facility] acetaminoph en 325 mg tablet 02-18 00:00: 00 Yes 650mg Take 2 tablets by mouth every 6 (six) hours as needed for Pain (scale 1-3). [facility] acetaminoph en 325 mg tablet 02-18 00:00: 00 Yes 650mg Take 2 tablets by mouth every 6 (six) hours as needed for Pain (scale 1-3). [facility] acetaminoph en 325 mg tablet 02-18 00:00: 00 Yes 650mg Take 2 tablets by mouth every 6 (six) hours as needed for Pain (scale 1-3). [facility] furosemide 20 mg tablet 02-18 00:00: 00 05-20 04:59 :00 No [id number] 60mg Take 3 tablets by mouth every morning and evening for 90 days. [facility] aspirin (ASPIR-81) 81 mg EC tablet 02-18 00:00: 00 05-20 04:59 :00 No [id number] 81mg Take 1 tablet by mouth in the morning for 90 days. [facility] furosemide 20 mg tablet 02-18 00:00: 00 05-20 04:59 :00 No [id number] 60mg Take 3 tablets by mouth every morning and evening for 90 days. [facility] aspirin (ASPIR-81) 81 mg EC tablet 02-18 00:00: 00 05-20 04:59 :00 No [id number] 81mg Take 1 tablet by mouth in the morning for 90 days. [facility] furosemide 20 mg tablet 02-18 00:00: 00 05-20 04:59 :00 No [id number] 60mg Take 3 tablets by mouth every morning and evening for 90 days. [facility] aspirin (ASPIR-81) 81 mg EC tablet 02-18 00:00: 00 05-20 04:59 :00 No [id number] 81mg Take 1 tablet by mouth in the morning for 90 days. [facility] furosemide 20 mg tablet 02-18 00:00: 00 05-20 04:59 :00 No [id number] 60mg Take 3 tablets by mouth every morning and evening for 90 days. [facility] aspirin (ASPIR-81) 81 mg EC tablet 02-18 00:00: 00 05-20 04:59 :00 No [id number] 81mg Take 1 tablet by mouth in the morning for 90 days. [facility] furosemide 20 mg tablet 02-18 00:00: 00 05-20 04:59 :00 No [id number] 60mg Take 3 tablets by mouth every morning and evening for 90 days. [facility] aspirin (ASPIR-81) 81 mg EC tablet 02-18 00:00: 00 05-20 04:59 :00 No [id number] 81mg Take 1 tablet by mouth in the morning for 90 days. [facility] furosemide 20 mg tablet 02-18 00:00: 00 05-20 04:59 :00 No [id number] 60mg Take 3 tablets by mouth every morning and evening for 90 days. [facility] aspirin (ASPIR-81) 81 mg EC tablet 02-18 00:00: 00 05-20 04:59 :00 No [id number] 81mg Take 1 tablet by mouth in the morning for 90 days. [facility] furosemide 20 mg tablet 02-18 00:00: 00 05-20 04:59 :00 No [id number] 60mg Take 3 tablets by mouth every morning and evening for 90 days. [facility] aspirin (ASPIR-81) 81 mg EC tablet 02-18 00:00: 00 05-20 04:59 :00 No [id number] 81mg Take 1 tablet by mouth in the morning for 90 days. [facility] furosemide 20 mg tablet 02-18 00:00: 00 05-20 04:59 :00 No [id number] 60mg Take 3 tablets by mouth every morning and evening for 90 days. [facility] aspirin (ASPIR-81) 81 mg EC tablet 02-18 00:00: 00 05-20 04:59 :00 No [id number] 81mg Take 1 tablet by mouth in the morning for 90 days. [facility] furosemide 20 mg tablet 02-18 00:00: 00 05-20 04:59 :00 No [id number] 60mg Take 3 tablets by mouth every morning and evening for 90 days. [facility] aspirin (ASPIR-81) 81 mg EC tablet 02-18 00:00: 00 05-20 04:59 :00 No [id number] 81mg Take 1 tablet by mouth in the morning for 90 days. [facility] furosemide 20 mg tablet 02-18 00:00: 00 05-20 04:59 :00 No [id number] 60mg Take 3 tablets by mouth every morning and evening for 90 days. [facility] aspirin (ASPIR-81) 81 mg EC tablet 02-18 00:00: 00 05-20 04:59 :00 No [id number] 81mg Take 1 tablet by mouth in the morning for 90 days. [facility] furosemide 20 mg tablet 02-18 00:00: 00 05-20 04:59 :00 No [id number] 60mg Take 3 tablets by mouth every morning and evening for 90 days. [facility] aspirin (ASPIR-81) 81 mg EC tablet 02-18 00:00: 00 05-20 04:59 :00 No [id number] 81mg Take 1 tablet by mouth in the morning for 90 days. [facility] furosemide 20 mg tablet 02-18 00:00: 00 05-20 04:59 :00 No [id number] 60mg Take 3 tablets by mouth every morning and evening for 90 days. [facility] aspirin (ASPIR-81) 81 mg EC tablet 02-18 00:00: 00 05-20 04:59 :00 No [id number] 81mg Take 1 tablet by mouth in the morning for 90 days. [facility] furosemide 20 mg tablet 02-18 00:00: 00 05-20 04:59 :00 No [id number] 60mg Take 3 tablets by mouth every morning and evening for 90 days. [facility] aspirin (ASPIR-81) 81 mg EC tablet 02-18 00:00: 00 05-20 04:59 :00 No [id number] 81mg Take 1 tablet by mouth in the morning for 90 days. [facility] furosemide 20 mg tablet 02-18 00:00: 00 05-20 04:59 :00 No [id number] 60mg Take 3 tablets by mouth every morning and evening for 90 days. [facility] aspirin (ASPIR-81) 81 mg EC tablet 02-18 00:00: 00 05-20 04:59 :00 No [id number] 81mg Take 1 tablet by mouth in the morning for 90 days. [facility] amiodarone 400 mg tablet 02-18 00:00: 00 02-22 04:59 :00 No [id number] 400mg Take 1 tablet by mouth in the morning and 1 tablet at noon and 1 tablet in the evening. Do all this for 8 doses. [facility] ezetimibe 10 mg tablet 2 00:00: 00 Yes [id number] 10mg Take 1 tablet by mouth daily. [facility] ezetimibe 10 mg tablet 2- 00:00: 00 Yes [id number] 10mg Take 1 tablet by mouth daily. [facility] ezetimibe 10 mg tablet 2-04 00:00: 00 Yes [id number] 10mg Take 1 tablet by mouth daily. [facility] ezetimibe 10 mg tablet 2020-0 2-04 00:00: 00 Yes [id number] 10mg Take 1 tablet by mouth daily. [facility] ezetimibe 10 mg tablet 2020-0 2- 00:00: 00 Yes [id number] 10mg Take 1 tablet by mouth daily. [facility] ezetimibe 10 mg tablet 2020-0 2-04 00:00: 00 Yes [id number] 10mg Take 1 tablet by mouth daily. [facility] ezetimibe 10 mg tablet 2020-0 2- 00:00: 00 Yes [id number] 10mg Take 1 tablet by mouth daily. [facility] ezetimibe 10 mg tablet 2020-0 2- 00:00: 00 Yes [id number] 10mg Take 1 tablet by mouth daily. [facility] ezetimibe 10 mg tablet 2020-0 2- 00:00: 00 Yes [id number] 10mg Take 1 tablet by mouth daily. [facility] ezetimibe 10 mg tablet 2020-0 2- 00:00: 00 Yes [id number] 10mg Take 1 tablet by mouth daily. [facility] ezetimibe 10 mg tablet 2020-0 2-04 00:00: 00 Yes [id number] 10mg Take 1 tablet by mouth daily. [facility] ezetimibe 10 mg tablet 2020-0 2-04 00:00: 00 Yes [id number] 10mg Take 1 tablet by mouth daily. [facility] ezetimibe 10 mg tablet 2020-0 2-04 00:00: 00 Yes [id number] 10mg Take 1 tablet by mouth daily. [facility] ezetimibe 10 mg tablet 2020-0 2-04 00:00: 00 Yes [id number] 10mg Take 1 tablet by mouth daily. [facility] Vital Signs Vital Name Observation Time Observation Value Comments S kellinolberto Body weight 2022-02-27 13:24:00 70.761 kg [facility] BMI 2022-02-27 13:24:00 25.96 kg/m2 [facility] Encounters Start Date/Time End Date/Time Encounter Type Admission Type Attending Clinicians Care Facility Care Department Encounter ID Source 2022-05-18 00:00:00 2022-05-18 00:00:00 Roe Pino [facility] 1.2.840.114 350.1.13.10 4.2.7.2.686 [id number] [facility] 2022-05-16 00:00:00 2022-05-16 00:00:00 Refill Avis [facility] 1.2840.114 350.1.13.10 4.2.7.2.686 [id number] [facility] 2022-05-16 00:00:00 2022-05-16 00:00:00 Refill Avis [facility] 1.2840.114 350.1.13.10 4.2.7.2.686 [id number] [facility] 2022-05-16 00:00:00 2022-05-16 00:00:00 Refill karli [facility] 1.2840.114 350.1.13.10 4.2.7.2.686 [id number] [facility] 2022-05-16 00:00:00 2022[facility]05[facility].114 350.1.13.10 4.2.7.2.686 [id number] [facility] 2022-05-16 00:00:00 2022-05-16 [facility]..114 350.1.13.10 4.2.7.2.686 [id number] [facility] 2022-03-09 08:03:00 2022-03-09 10:00:00 Hospital Encounter Chanell Whiteside [facility] 1..114 350.1.13.10 4.2.7.2.686 [id number] [facility] 2022-03-09 08:03:00 2022-03-09 10:00:00 Outpatient R CHANELL WHITESIDE [facility] [id number] [facility] 2022-03-08 00:00:00 2022-03-08 00:00:00 Telephone Lori Salash [facility] 1..114 350.1.13.10 4.2.7.2.686 [id number] [facility] 2022-03-07 09:00:00 2022-03-07 09:15:00 Laboratory Only Only, Ang Db Test Miesha [facility] 1.114 350.1.13.10 4.2.7.2.686 [id number] [facility] 2022-03-07 09:00:00 2022-03-07 09:00:00 Outpatient R [facility]LL [facility] [id number] [facility] 2022-03-03 00:00:00 2022-03-03 00:00:00 [facility].114 350.1.13.10 4.2.7.2.686 [id number] [facility] 2022-03-03 00:00:00 2022-03-03 00:00:00 [facility] 1.2.840.114 350.1.13.10 4.2.7.2.686 [id number] [facility] 2022-02-24 00:00:00 2022-02-24 00:00:[address] [facility] 1.2.840.114 350.1.13.10 4.2.7.2.686 [id number] [facility] 2022-02-24 00:00:00 2022-02-24 00:00:[address] [facility] 1.2.840.114 350.1.13.10 4.2.7.2.686 [id number] [facility] 2022-02-21 00:00:00 2022-02-21 00:00:00 [facility] 1.2.840.114 350.1.13.10 4.2.7.2.686 [id number] [facility] 2022-02-20 00:00:00 2022-02-20 00:00:00 Transition of Care Iza Fernandes [facility] 1.2.840.114 350.1.13.10 4.2.7.2.686 [id number] [facility] 2022-02-11 20:12:00 2022-02-18 17:00:00 Inpatient U ANNE RANGEL [facility] [id number] [facility] 2022-02-11 20:12:00 2022-02-18 17:00:00 Hospital Encounter Rito Ardon, Samra Grant, [facility] 1.2.840.114 350.1.13.10 4.2.7.2.686 [id number] [facility] 2022-02-17 00:00:00 2022-02-17 00:00:00 Prep For Surgery Joselyn Poe [facility] 1.20.114 350.1.13.10 4.2.7.2.686 [id number] [facility] 2022-02-15 11:56:00 2022-02-15 14:56:00 Surgery Cristobalbetina DanielRodgers [facility] 1.20.114 350.1.13.10 4.2.7.2.686 [id number] [facility] 2022-02-14 00:00:00 2022-02-14 00:00:00 Telephone Anne Rangel [facility] 1.114 350.1.13.10 4.2.7.2.686 [id number] [facility] 2022-01-17 00:00:00 2022-01-17 00:00:00 Transition of Care Maria Del Carmen Ferris [facility] 1.2.114 350.1.13.10 4.2.7.2.686 [id number] [facility] 2022-01-13 11:24:00 2022-01-15 13:38:00 Inpatient X FLOYD GRANT [facility] [id number] [facility] 2022-01-13 11:24:00 2022-01-15 13:38:00 Hospital Encounter Aneta Wade David Abdullah, Yaman [facility] 1..114 350.1.13.10 4.2.7.2.686 [id number] [facility] 2022-01-13 00:00:00 2022-01-13 00:00:00 Telephone Roe Etienne [facility] 1.2.840.114 350.1.13.10 4.2.7.2.686 [id number] [facility] 2022-01-05 08:40:00 2022-01-05 08:40:00 Outpatient MELCHOR MORAN [facility] [id number] [facility] 2021-12-23 00:00:00 2021-12-23 23:59:00 Outpatient MEHRAN SIU [facility] [id number] [facility] 2021-12-14 00:00:00 2021-12-14 00:00:00 Transition of Care Iza Fernandes [facility] 1.84.114 350.1.13.10 4.2.7.2.686 [id number] [facility] 2021-12-11 08:48:00 2021-12-13 17:21:00 Inpatient [facility] [id number] [facility] 2021-12-11 08:48:00 2021-12-13 17:21:00 Hospital Encounter Aneta Wade [facility] [place] 1.84.114 350.1.13.10 4.2.7.2.686 [id number] [facility] 2021-12-11 08:48:00 2021-12-13 17:21:00 Outpatient X JIGNA BRAULIO [facility] CHARISMA [id number] [facility] 2021-12-09 18:18:00 2021-12-09 19:40:00 Emergency X GAIL NAVA [facility] ERT [id number] [facility] 2021-12-09 18:18:00 2021-12-09 19:40:00 Emergency Gail Nava [facility] 1.2840.114 350.1.13.10 4.2.7.2.686 [id number] [facility] 2021-12-09 00:00:00 2021-12-09 00:00:00 Telephone Roe Etienne [facility] 1.2.840.114 350.1.13.10 4.2.7.2.686 [id number] [facility] 2021-12-09 00:00:00 2021-12-09 00:00:00 Telephone Roe Etienne [facility] 1.2.840.114 350.1.13.10 4.2.7.2.686 [id number] [facility] 2021-12-07 00:00:00 2021-12-07 00:00:00 Orders Only Doctor Unassigned, [place] [facility] 1.2.840.114 350.1.13.10 4.2.7.2.686 [id number] [facility] 2021-11-25 13:30:00 2021-11-25 13:45:00 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, 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 Roe Etienne [facility] 1.2.840.114 350.1.13.10 4.2.7.2.686 [id number] [facility] 2021-11-25 13:30:00 2021-11-25 13:30:00 Outpatient R ROE ETIENNE [facility] [id number] [facility] 2021-11-16 09:00:00 2021-11-16 10:09:38 Office Visit Roe Etienne [facility] 1.2.840.114 350.1.13.10 4.2.7.2.686 [id number] [facility] 2021-11-16 09:00:00 2021-11-16 10:09:38 Outpatient R ROE ETIENNE [facility] [id number] [facility] 2021-11-16 09:00:00 2021-11-16 10:09:38 [facility] 1..114 350.1.13.10 4.2.7.2.686 [id number] [facility] 2021-11-16 00:00:00 2021-11-16 00:00:00 Orders Only Doctor Unassigned, [place] [facility] 1..114 350.1.13.10 4.2.7.2.686 [id number] [facility] 2021-11-15 00:00:00 2021-11-15 00:00:00 Transition of Care Maria Del Carmen Ferris [place] 1..114 350.1.13.10 4.2.7.2.686 [id number] [facility] 2021-11-12 10:54:00 2021-11-14 12:30:00 Inpatient X BRAULIO DIAZ [facility] CHAR[facility] [id number] [facility] 2021-11-12 10:54:00 2021-11-14 12:30:00 Outpatient X BRAULIO DIAZ [facility] [id number] [facility] 2021-11-12 10:54:00 2021-11-14 12:30:00 Inpatient X BRAULIO DIAZ [facility] CHAR[facility]MA [id number] [facility] 2021-11-12 10:54:00 2021-11-14 12:30:00 Hospital Encounter Nuha French Jelani [facility] 1.84.114 350.1.13.10 4.2.7.2.686 [id number] [facility] 2021-11-14 00:00:00 2021-11-14 00:00:00 Telephone Roe Etienne [facility] 1.2.840.114 350.1.13.10 4.2.7.2.686 [id number] [facility] 2021-11-09 10:27:00 2021-11-09 15:07:00 Emergency X ANETA WADE [facility] ERT [id number] [facility] 2021-11-09 10:27:00 2021-11-09 15:07:00 Emergency Aneta Wade [facility] 1.2.840.114 350.1.13.10 4.2.7.2.686 [id number] [facility] 2021-11-09 00:00:00 2021-11-09 00:00:00 Orders Only Doctor Unassigned, [place] [facility] 1.2.840.114 350.1.13.10 4.2.7.2.686 [id number] [facility] 2021-03-22 00:00:00 2021-03-22 00:00:00 Orders Only Doctor Unassigned, [place] [facility] 1.2.840.114 350.1.13.10 4.2.7.2.686 [id number] [facility] 2021-02-07 00:00:00 2021-02-07 00:00:00 Orders Only Doctor Unassigned, [place] [facility] 1.2.840.114 350.1.13.10 4.2.7.2.686 [id number] [facility] 2020-09-14 00:00:00 2020-09-14 00:00:00 Orders Only Doctor Unassigned, [place] [facility] 1.2.840.114 350.1.13.10 4.2.7.2.686 [id number] [facility] 2020-09-03 00:00:00 2020-09-03 00:00:00 Transition of Care Khadijah Denson 1.2840.114 350.1.13.10 4.2.7.2.686 [id number] [facility] 2020-08-13 21:21:00 2020-09-02 17:59:00 Hospital Encounter Petar Wood, Scar Burnett, Mehran Barger, Mehran Colin [facility] 1.2840.114 350.1.13.10 4.2.7.2.686 [id number] [facility] 2020-08-13 21:21:00 2020-08-13 21:21:00 Emergency X PETAR WOOD [facility] ERT [id number] [facility] 2020-01-20 00:00:00 2020-01-20 00:00:00 Orders Only Doctor Unassigned, [place] [facility] 1.2840.114 350.1.13.10 4.2.7.2.686 [id number] [facility] 2020-01-19 00:00:00 2020-01-19 00:00:00 Transition of Care Britney Cooney 1.2840.114 350.1.13.10 4.2.7.2.686 [id number] [facility] 2020-01-14 15:45:35 2020-01-16 21:37:00 Hospital Encounter Sahil Aguilar Donnell Yarima, Wakili S Li, Jose Angel Byrnes [facility] 1.2840.114 350.1.13.10 4.2.7.2.686 [id number] [facility] 2020-01-14 15:45:35 2020-01-16 21:37:00 Inpatient X ANTON BYRNES [facility] PETER [id number] [facility] Results Test Description Test Time Test Comments Results Result Co mments Source CULTURE, ANAEROBIC 2021-09-08 14:30:49 SPECIMEN NUMBER: [id number] CULTURE, ANAEROBIC SPECIMEN NUMBER: [id number] SPECIMEN COMMENT: FOOT SOURCE: FOOT REPORT STATUS: [...] ALL TESTING PERFORMED [facility] 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 CLIA NUMBER [id number] [facility] [place]. [id number]
--- NOTE | 2023-08-06 12:09 | RAD REPORT ---
EXAM DESCRIPTION: RAD - Chest Pa And Lat (2 Views) - 08/06/2023 11:59 am CLINICAL HISTORY: Congestion;COPD;Cough Chest pain. COMPARISON: CHEST SINGLE VIEW dated 10/25/2014; CHEST SINGLE VIEW dated 10/24/2014 FINDINGS: The lungs are hyperexpanded compatible with COPD. Mild linear opacities with small bilater al pleural effusions seen in both lung bases which may represent pulmonary edema. The heart is modera tely enlarged. Sternotomy wires. IMPRESSION: Mild to moderate CHF pattern is suspected.
[2023-08-06 13:39] LABS: Absolute Lymphocytes (CBC) 1.2 K/uL (0.7-4.9); Hematocrit 38.3 % (39.6-49.0); MPV 7.5 fL (7.6-11.3); Platelets 265 thou/uL (152-406); RBC Red Blood Cell Count 4.85 M/uL (4.33-5.43)
[2023-08-06 13:46] LABS: Protime INR 1.8
[2023-08-06 13:57] LABS: Albumin 2.2 g/dL (3.4-5.0); Bilirubin Direct 0.2 mg/dL (0-0.2); Bilirubin Indirect, Calculated 0.2 mg/dL (0.2-0.8); Bilirubin Total 0.4 mg/dL (0.2-1.0); Magnesium 2.2 mg/dL (1.6-2.4); Potassium 3.3 mEq/L (3.5-5.1); Protein, Total 6.4 g/dL (6.4-8.2)
[2023-08-06 14:05] LABS: Troponin High Sensitivity 166.1 pg/mL (<58.9)
--- NOTE | 2023-08-06 14:30 | EDPHYS ---
Physician Documentation [facility] Name: Ty Grant Age: 77 yrs Sex: Male : 1945 Arrival Date: 08/06/2023 Time: 10:24 Bed Treatment Private MD: ED Physician Jamey Jurado HPI: 08/06 11:45 This 77 yrs old Male presents to ER via Wheelchair with complaints of Shortness Of sb4 Breath, Cough. 11:45 The patient has shortness of breath at rest. Onset: The symptoms/episode began/occurred sb4 2 week(s) ago. Duration: The symptoms are continuous. The patient's shortness of breath is aggravated by exertion, is alleviated by rest. Associated signs and symptoms: Pertinent positives: non-productive cough, fever. The patient has been recently seen by a physician: the patient's primary care provider, earlier today, with similar presenting complaints. progressively worsening sob x 2 weeks. ran out of albuterol 1 week ago. has history of COPD/CHF. [facility], was [facility] here due to tachycardia, tachypnea, hypoxia, and fever. complains of sob, no chest pain, non productive cough. does not wear home o2. Historical: - Allergies: 11:24 No Known Drug Allergies; iw - Home Meds: 17:38 aspirin 81 mg Oral chew [Active]; atorvastatin 80 mg Oral tab [Active]; Combivent Inhl tl4 [Active]; ezetimibe 10 mg Oral tab [Active]; furosemide 40 mg Oral tab [Active]; losartan 50 mg Oral tab [Active]; metformin 500 mg Oral tab [Active]; rivaroxaban 20 mg Oral tab [Active]; Symbicort inhalation [Active]; - PMHx: 11:24 Chronic obstructive lung disease; diabetes mellitus; Hypercholesterolemia; Hypertensive iw disorder; - Immunization history:: Adult Immunizations up to date. - Social history:: Smoking status: Patient denies any tobacco usage or history of. ROS: 11:45 Eyes: Negative for injury, pain, redness, and discharge, ENT: Negative for injury, sb4 pain, and discharge, Cardiovascular: Negative for chest pain, palpitations, and edema, 11:45 Constitutional: Positive for fever, 11:45 Cardiovascular: Positive for 11:45 Respiratory: Positive for cough, dyspnea on exertion, shortness of breath, 11:45 All other systems are negative, Exam: 11:45 Constitutional: This is a well developed, well nourished patient who is awake, alert, sb4 and in no acute distress. Head/Face: Normocephalic, atraumatic. Eyes: Extra-ocular motions intact. Periorbital areas with no swelling, redness, or edema. ENT: Mucous membranes moist. Abdomen/GI: Soft, non-tender, no distension. Skin: Warm, dry with normal turgor. Normal color with no rashes, no lesions, and no evidence of cellulitis. MS/ Extremity: Pulses equal, no cyanosis. Neurovascular intact. Full, normal range of motion. Neuro: Awake and alert, GCS 15, oriented to person, place, time, and situation. Motor strength 5/5 in all extremities. Sensory grossly intact. 11:45 Cardiovascular: Rate: tachycardic, Rhythm: regular, Pulses: no pulse deficits are appreciated, Heart sounds: normal, 11:45 Respiratory: mild respiratory distress is noted, Respirations: labored breathing, that is mild, Breath sounds: wheezing: that is moderate, is heard diffusely, Respiratory rate: 24 13:17 ECG was reviewed by the Attending Physician. sb4 Vital Signs: 11:23 BP 111 / 82; Pulse 110; Resp 24; Temp 99.7; Pulse Ox 93% ; Weight 84.37 kg; Height 5 iw ft. 7 in. ; 14:00 BP 126 / 84; Pulse 105; Resp 25; Pulse Ox 93% on 2 lpm NC; tl4 15:00 BP 128 / 65; Pulse 99; Resp 21; Pulse Ox 94% on 2 lpm NC; tl4 16:00 BP 133 / 98; Pulse 104; Resp 27; Pulse Ox 95% on 2 lpm NC; tl4 16:30 BP 142 / 76; Pulse 101; Resp 26; Pulse Ox 95% on 2 lpm NC; tl4 17:00 BP 126 / 91; Pulse 105; Resp 25; Pulse Ox 95% on 2 lpm NC; tl4 17:38 BP 142 / 76; Pulse 104; Resp 23; Pulse Ox 95% on 2 lpm NC; tl4 11:23 Body Mass Index 29.13 (84.37 kg, 170.18 cm) iw MDM: 11:22 Patient medically screened. sb4 11:45 Differential diagnosis: asthma, Bronchitis CHF exacerbation, Chronic Obstructive sb4 Pulmonary Disease Myocardial Infarction pneumonia, pulmonary edema. 14:42 Data interpreted: quality assurance monitor final: rate is 106 beats/min, rhythm is atrial sb4 fibrillation. Data reviewed: vital signs, nurses notes, lab test result(s), EKG, radiologic studies. Counseling: I had a detailed discussion with the patient and/or guardian regarding the historical points, exam findings, and any diagnostic results supporting the discharge/admit diagnosis, lab results, radiology results, the need to transfer to another facility, for higher level of care. 08/06 11:23 Order name: BMP; Complete Time: 14:06 sb4 08/06 11:23 Order name: Blood Culture Adult (2) sb4 08/06 11:23 Order name: CBC with Diff; Complete Time: 13:44 sb4 08/06 11:23 Order name: Hepatic Function; Complete Time: 14:06 sb4 08/06 11:23 Order name: Lipase; Complete Time: 14:06 sb4 08/06 11:23 Order name: Magnesium; Complete Time: 14:06 sb4 08/06 11:23 Order name: NT PRO-BNP; Complete Time: 14:06 sb4 08/06 11:23 Order name: PT-INR; Complete Time: 13:49 sb4 08/06 11:23 Order name: Ptt, Activated; Complete Time: 13:49 sb4 08/06 11:23 Order name: Troponin HS; Complete Time: 14:06 sb4 08/06 11:23 Order name: XRAY Chest Pa And Lat (2 Views); Complete Time: 12:12 sb4 08/06 14:41 Order name: Chest Wo Con CT; Complete Time: 16:11 sb4 08/06 11:23 Order name: EKG; Complete Time: 11:24 sb4 08/06 11:23 Order name: Cardiac monitoring; Complete Time: 13:27 sb4 08/06 11:23 Order name: EKG - Nurse/Tech; Complete Time: 13:27 sb4 08/06 11:23 Order name: IV Saline Lock; Complete Time: 13:27 sb4 08/06 11:23 Order name: Labs collected and sent; Complete Time: 13:27 sb4 08/06 11:23 Order name: O2 Per Protocol; Complete Time: 12:57 sb4 08/06 11:23 Order name: O2 Sat Monitoring; Complete Time: 12:57 sb4 EC:17 Rate is 104 beats/min. Rhythm is irregular, A fib. QRS interval is normal at 154 msec. sb4 QT interval is normal at 424 msec. Clinical impression: bifasicular block, new from prior EKG in 2014. Interpreted by me. Reviewed by me. Administered Medications: 13:01 Drug: DuoNeb Nebulize (3:1) (2.5 mg - 0.5 mg) 3 ml Nebulizer once Route: Nebulizer; tl4 16:40 Follow up: Response: No adverse reaction tl4 Disposition: 18:43 I was immediately available on-site in the Emergency Department for consultation in the ms3 care of the patient. Disposition Summary: 08/06/23 14:30 Transfer Ordered Notes: Transfer Location: [facility] sb4 Reason: Higher level of care sb4 Condition: Fair sb4 Problem: new sb4 Symptoms: are unchanged sb4 Accepting Physician: cardio(08/06/23 17:41) tl4 Diagnosis - Paroxysmal atrial fibrillation sb4 - Subsequent non-ST elevation (NSTEMI) myocardial infarction sb4 - Bifasicular block, new sb4 - Acute and chronic respiratory failure with hypoxia sb4 Forms: - Medication Reconciliation Form sb4 - SBAR form sb4 Signatures: Dispatcher [employer] Tash Dorman RN Jamey Escobar, DO ms3 Elisa Shoemaker PA-C PA-C sb4 LogWilfredo josue tl4 Corrections: (The following items were deleted from the chart) 14:30 14:30 cardio sb4 sb4 17:41 14:30 cardio sb4 tl4
--- NOTE | 2023-08-06 14:30 | ER ---
Nurse's Notes [facility] Name: Ty Grant Age: 77 yrs Sex: Male : 1945 Arrival Date: 08/06/2023 Time: 10:24 Bed Treatment Private MD: Diagnosis: Paroxysmal atrial fibrillation;Subsequent non-ST elevation (NSTEMI) myocardial infarction;Bifasicular block, new;Acute and chronic respiratory failure with hypoxia Presentation: 08/06 11:23 Chief complaint: Patient states: SENT BY [facility] FOR SOB x1 [place]. Coronavirus screen: At this iw time, the client does not indicate any symptoms associated with coronavirus-19. Ebola Screen: No symptoms or risks identified at this time. Initial Sepsis Screen: Does the patient meet any 2 criteria? No. Patient's initial sepsis screen is negative. Does the patient have a suspected source of infection? No. Patient's initial sepsis screen is negative. Risk Assessment: Do you want to hurt yourself or someone else? Patient reports no desire to harm self or others. Onset of symptoms is unknown. 11:23 Method Of Arrival: Wheelchair iw 11:23 Acuity: NYA 3 iw Triage Assessment: 11:24 General: Appears in no apparent distress. Behavior is calm, cooperative, appropriate iw for age. Pain: Denies pain. Respiratory: Reports shortness of breath Onset: The symptoms/episode began/occurred at an unknown time. the patient has mild shortness of breath. Historical: - Allergies: 11:24 No Known Drug Allergies; iw - Home Meds: 17:38 aspirin 81 mg Oral chew [Active]; atorvastatin 80 mg Oral tab [Active]; Combivent Inhl tl4 [Active]; ezetimibe 10 mg Oral tab [Active]; furosemide 40 mg Oral tab [Active]; losartan 50 mg Oral tab [Active]; metformin 500 mg Oral tab [Active]; rivaroxaban 20 mg Oral tab [Active]; Symbicort inhalation [Active]; - PMHx: 11:24 Chronic obstructive lung disease; diabetes mellitus; Hypercholesterolemia; Hypertensive iw disorder; - Immunization history:: Adult Immunizations up to date. - Social history:: Smoking status: Patient denies any tobacco usage or history of. Screenin:38 [facility] ED Fall Risk Assessment (Adult) History of falling in the last 3 months, tl4 including since admission No falls in past 3 months (0 pts) Confusion or Disorientation No (0 pts) Intoxicated or Sedated No (0 pts) Impaired Gait No (0 pts) Mobility Assist Device Used No (0 pt) Altered Elimination No (0 pt) Score/Fall Risk Level 0 - 2 = Low Risk Oriented to surroundings, Maintained a safe environment, Educated pt \T\ family on fall prevention, incl call for assistance when getting out of bed, Assessed \T\ reinforced patient's understanding of fall precautions, Provided non-skid footwear, Hourly rounding (assess needs \T\ fall precautionary measures) done, Used ambulatory aids as needed (educated on \T\ assisted with). Abuse screen: Denies threats or abuse. Denies injuries from another. Nutritional screening: No deficits noted. Tuberculosis screening: No symptoms or risk factors identified. Assessment: 14:15 Reassessment: No changes from previously documented assessment. Patient and/or family tl4 updated on plan of care and expected duration. Pain level reassessed. Patient is alert, oriented x 3, equal unlabored respirations, skin warm/dry/pink. Cardiovascular: Rhythm is atrial fibrillation with rapid ventricular response. 16:35 Respiratory: Airway is patent Respiratory effort is even, unlabored, Breath sounds are tl4 coarse bilaterally. Breath sounds are diminished bilaterally. 16:55 Reassessment: Report to RONALD Hinson at [facility] ED. tl4 Vital Signs: 11:23 BP 111 / 82; Pulse 110; Resp 24; Temp 99.7; Pulse Ox 93% ; Weight 84.37 kg; Height 5 iw ft. 7 in. ; 14:00 BP 126 / 84; Pulse 105; Resp 25; Pulse Ox 93% on 2 lpm NC; tl4 15:00 BP 128 / 65; Pulse 99; Resp 21; Pulse Ox 94% on 2 lpm NC; tl4 16:00 BP 133 / 98; Pulse 104; Resp 27; Pulse Ox 95% on 2 lpm NC; tl4 16:30 BP 142 / 76; Pulse 101; Resp 26; Pulse Ox 95% on 2 lpm NC; tl4 17:00 BP 126 / 91; Pulse 105; Resp 25; Pulse Ox 95% on 2 lpm NC; tl4 17:38 BP 142 / 76; Pulse 104; Resp 23; Pulse Ox 95% on 2 lpm NC; tl4 11:23 Body Mass Index 29.13 (84.37 kg, 170.18 cm) iw ED Course: 10:27 Patient arrived in ED. mr 11:22 Elisa Shoemaker PA-C is PHCP. sb4 11:22 Jamey Jurado DO is Attending Physician. sb4 11:24 Triage completed. iw 11:24 Arm band placed on. iw 12:01 XRAY Chest Pa And Lat (2 Views) In Process Unspecified. EDMS 12:56 Wilfredo Krishna is Primary Nurse. tl4 13:27 BMP Sent. tl4 13:27 Magnesium Sent. tl4 13:27 CBC with Diff Sent. tl4 13:27 Hepatic Function Sent. tl4 13:27 Lipase Sent. tl4 13:27 NT PRO-BNP Sent. tl4 13:27 PT-INR Sent. tl4 13:27 Ptt, Activated Sent. tl4 13:27 Troponin HS Sent. tl4 13:39 BMP Sent. tl4 13:39 CBC with Diff Sent. tl4 13:58 Second set of blood cultures drawn by id. em1 14:46 initiated transfer to [facility], faxed chart to [place] [facility] as requested by [facility] transfer bd [facility]. 14:[address] In Process Unspecified. EDMS 16:39 Patient has correct armband on for positive identification. Placed in gown. Bed in low tl4 position. Call light in reach. Side rails up X2. Adult w/ patient. Provided Education on: ED process. Door closed. Noise minimized. Lights dimmed. Warm blanket given. Pillow given. 16:39 No provider procedures requiring assistance completed. tl4 17:38 Patient transferred, IV remains in place. tl4 Administered Medications: 13:01 Drug: DuoNeb Nebulize (3:1) (2.5 mg - 0.5 mg) 3 ml Nebulizer once Route: Nebulizer; tl4 16:40 Follow up: Response: No adverse reaction tl4 Medication: 16:38 VIS not applicable for this client. tl4 Outcome: 14:30 ER care complete, transfer ordered by . sb4 16:40 Instructed on the need for transfer, tl4 17:39 [address] private ambulance [facility]. to [facility] tl4 Transfer form completed. X-rays sent w/ patient. 17:40 Condition: stable tl4 17:41 Patient left the ED. tl4 Signatures: Dispatcher [employer] EDMS Yocasta Chicas, Leonela, Reg Reg mr Tash Sharma, Anjum Underwood RN em1 Elisa Shoemaker PA-C PA-C sb4 Wilfredo Krishna tl4 Corrections: (The following items were deleted from the chart) 17:38 17:00 BP 142 / 76; Pulse 104bpm; Resp 23bpm; Pulse Ox 95% 2 lpm Nasal Cannula; tl4 tl4
--- NOTE | 2023-08-06 16:09 | RAD REPORT ---
EXAM DESCRIPTION: CT - Thorax Wo Con - 08/06/2023 2:52 pm CLINICAL HISTORY: CHEST PAIN COMPARISON: THORAX WO CONTRAST dated 10/25/2014; Chest Pa And Lat (2 Views) dated 08/06/2023 TECHNIQUE: Axial thin cut images of the chest were obtained without IV contrast. Multiplanar reforma ts were generated and reviewed. All CT scans are performed using dose optimization technique as appropriate and may include automated exposure control or mA/KV adjustment according to patient size. FINDINGS: Patchy ground-glass and small consolidative opacities predominantly in the dependent lower lobes bilaterally, as well as small areas of involvement in the posterior left upper lobe. Bronchial wall thickening in the same regions. Mild pleural thickening with extensive calcified pleural plaque , stable. No pleural effusion. No pneumothorax. No abnormal mediastinal or hilar masses or lymphadenopathy seen. Sequelae of median sternotomy and CA BG. Prominent caliber of the main pulmonary artery. No significant aortic or pulmonary artery finding s. Assessment is limited in the absence of IV contrast. No chest wall mass or abnormal axillary lymphadenopathy. Evaluation of the solid abdominal structures reveals no suspicious findings. Lobulated contour of the spleen, nonspecific. Status post cholecystectomy. Diffuse osteopenia and syndesmophytes throughout t he thoracic spine again seen. IMPRESSION: Predominantly dependent bilateral lower lobe airspace opacities with bronchial wall thic kening, concerning for an infectious or inflammatory process. Prominent caliber of the main pulmonary artery. Please correlate clinically for evidence of pulmonary hypertension. Stable findings as above.
[2023-08-06 19:31] VITALS: TEMP 99.7
[2023-08-06 19:43] VITALS: BP 142/76; O2SAT 95
--- NOTE | 2023-08-07 17:12 | EKG ---
Test Date: 2023-08-06 Test Time: 13:12:41 Pupil Personnel Worker: TYLOR MEASUREMENT RESULTS: Intervals: Rate: 100 [place]: QRSD: 158 QT: 410 QTc: 528 [place]: P: [place]: QRS: 131 T: 44 INTERPRETIVE STATEMENTS: Atrial fibrillation with premature ventricular or aberrantly conducted complexes Right bundle branch block Left posterior fascicular block Bifascicular block Abnormal ECG Compared to ECG 08/06/2023 13:03:13 No significant changes Electronically Signed On 08-07-23 17:10:34 VAMP CUT OUT WORKER by Juan Barnard
--- NOTE | 2023-08-07 17:13 | EKG ---
Test Date: 2023-08-06 Test Time: 13:03:13 Basting Puller: TYLOR MEASUREMENT RESULTS: Intervals: Rate: 96 MT: QRSD: 156 QT: 394 QTc: 497 [place]: P: MT: QRS: 131 T: 30 INTERPRETIVE STATEMENTS: Atrial fibrillation with premature ventricular or aberrantly conducted complexes Right bundle branch block Left posterior fascicular block Bifascicular block Abnormal ECG Compared to ECG 10/25/2014 06:01:54 Ventricular premature complex(es) now present Right bundle-branch block now present Left posterior fascicular block now present Bifascicular block now present Sinus rhythm no longer present Atrial premature complex(es) no longer present ST (T wave) deviation no longer present Electronically Signed On 08-07-23 17:10:41 CARPET LAYER HELPER by Juan Barnard
== END ==
LOC: ER 10:24
DX: J96.21 Acute and chronic respiratory failure with hypoxia (principal); I48.0 Paroxysmal atrial fibrillation; I22.2 Subsequent non-ST elevation (NSTEMI) myocardial infarction; I21.9 Acute myocardial infarction, unspecified; I45.2 Bifascicular block; I10 Essential (primary) hypertension; E11.9 Type 2 diabetes mellitus without complications; J44.9 Chronic obstructive pulmonary disease, unspecified; Z79.82 Long term (current) use of aspirin
CPT/HCPCS: 93005 ×2; 87040 ×2; 85025; 80048; 36415; 83735; 85610; 80076; 85730; 84484; 83690; 83880; 71250; 71046; 94640; 99285; J7613; J7644